=== PATIENT | male | born 1980 | race Two or more races ===

== ENCOUNTER 2019-02-23 14:18 | Inpatient (IN) | payer MEDICAID ==
[2019-02-22 18:40] VITALS: BP 145/90
[~2019-02-23] VITALS: Ht 172.7 cm; Wt 94.3 kg
[2019-02-23 14:21] VITALS: BP 141/93
[2019-02-23] MEDS ORDERED: HUMULIN R100 UNIT/1 SUBQ (14:25)
--- NOTE | 2019-02-23 14:30 | NUR ---
ED Nurse Note: patient walked into ED from home c/o left lower leg/foot swelling for 3 weeks. patient reports he has hx of DM1. patient is alert awake x4 ambulatory, breathing unlabored and even, speaking in full sentences.
--- NOTE | 2019-02-23 14:46 | Emergency Room Report ---
History of Present Illness General Chief Complaint: Edema Source: Patient Present Illness [facility] Disclaimer: Please note that this report is being documented using DRAGON technology. This can lead to erroneous entry secondary to incorrect interpretation by the dictating instrument. HPI: Is a 38-year-old male with a history of type 1 diabetes noncompliant with insulin presented for evaluation of left leg edema. Symptoms have been present for several weeks. He notes no obvious injury but is walking a lot. He states he has had one prior episode of lower extremity edema and was worked up and found no diagnosis. He notes pain in the foot, ankle and lower calf. Denies any fevers, chills, vomiting, diarrhea. He is noncompliant with his insulin and has not had any for several weeks. He otherwise denies any chest pain, shortness of breath, cough. He uses crystal meth, alcohol and tobacco. Does not inject any illicit drugs. No prior history of PE/DVT. No history of coagulopathy. PMH: Type 1 diabetes noncompliant PSH: Right ankle repair Allergies: Denies Social Hx: Crystal meth abuse, tobacco use, alcohol abuse Allergies: Coded Allergies: No Known Allergies (Unverified , 02/23/19) Nursing Documentation-[facility] Past Medical History: No History, Except For Hx Diabetes: Yes Review of Systems All Other Systems: negative except mentioned in HPI Physical Exam Vital Signs Date Time Temp Pulse Resp B/P (MAP) Pulse Ox O2 Delivery O2 Flow Rate FiO2 02/23/19 14:21 97.9 92 18 141/93 (109) 98 Room Air General: Awake and alert, no acute distress, unkempt HEENT: NC/AT. EOMI. poor dentition Cardiovascular: RRR. S1 and S2 normal. No murmur appreciated Resp: Normal work of breathing. No cough, wheezing or crackles appreciated Abdomen: Abdomen is soft, nondistended. Nontender Skin: 3+ pitting edema from the mid ferraro distally in the left lower extremity. Overlying erythema, no masses, no purulent drainage, no bleeding. There is a superficial ulcer over the left great toe at the distal phalanx without surrounding erythema or purulent drainage MSK: Normal tone and bulk. Moving all extremities. No obvious deformity. 3+ edema in the left lower extremity distally to the mid ferraro. No significant tenderness. Neuro: Awake and alert. Mentating appropriately. Sensation intact of the lower extremities bilaterally Procedures Critical Care Time Critical Care Time Total critical care time: Approximately 31 minutes Due to a high probability of clinically significant, life threatening deterioration, the patient required the highest level of preparedness to intervene emergently and I personally spent this critical care time directly and personally managing the patient. This critical care time included obtaining a history, examining the patient, pulse oximetry, ordering and reviewing studies , ordering treatments, evaluating response to treatment and updating management plan as needed, frequent reassessment and discussion with other providers as well as arranging for ultimate disposition. This critical to care time was performed to assess and manage the high probability of life-threatening deterioration that could result in multiorgan failure. This critical care time is separate from the separately billable procedures and treating other patients. Medical Decision Making Diagnostic Impression: Primary Impression: Cellulitis Additional Impressions: Hyperglycemia Toe ulcer due to DM Edema Hypokalemia Toe fracture ER Course Is a 38-year-old male presenting for several weeks of lower extremity edema. Laboratory Tests Test 02/23/19 14:44 02/23/19 15:40 White Blood Count 8.1 K/UL (4.8-10.8) Red Blood Count 4.65 M/UL (4.70-6.10) L Hemoglobin 11.7 G/DL (14.2-18.0) L Hematocrit 36.4 % (42.0-52.0) L Mean Corpuscular Volume 78 FL (80-99) L Mean Corpuscular Hemoglobin 25.1 PG (27.0-31.0) L Mean Corpuscular Hemoglobin Concent 32.0 G/DL (32.0-36.0) Red Cell Distribution Width 13.9 % (11.6-14.8) Platelet Count 261 K/UL (150-450) Mean Platelet Volume 6.1 FL (6.5-10.1) L Neutrophils (%) (Auto) 57.8 % (45.0-75.0) Lymphocytes (%) (Auto) 29.7 % (20.0-45.0) Monocytes (%) (Auto) 8.4 % (1.0-10.0) Eosinophils (%) (Auto) 3.0 % (0.0-3.0) Basophils (%) (Auto) 1.1 % (0.0-2.0) Erythrocyte Sedimentation Rate Pending Prothrombin Time 9.9 SEC (9.30-11.50) Prothrombin Time INR 0.9 (0.9-1.1) PTT 26 SEC (23-33) Sodium Level 132 MMOL/L (136-145) L Potassium Level 2.9 MMOL/L (3.5-5.1) L Chloride Level 96 MMOL/L (98-107) L Carbon Dioxide Level 26 MMOL/L (21-32) Anion Gap 10 mmol/L (5-15) Blood Urea Nitrogen 6 mg/dL (7-18) L Creatinine 0.9 MG/DL (0.55-1.30) Estimate Glomerular Filtration Rate > 60 mL/min (>60) Glucose Level 515 MG/DL (74-106) *H Calcium Level 8.2 MG/DL (8.5-10.1) L Total Bilirubin 0.6 MG/DL (0.2-1.0) Aspartate Amino Transferase (AST) 9 U/L (15-37) L Alanine Aminotransferase (ALT) 12 U/L (12-78) Alkaline Phosphatase 117 U/L (46-116) H Troponin I 0.000 ng/mL (0.000-0.056) C-Reactive Protein, Quantitative 6.8 mg/dL (0.00-0.90) H Pro-B-Type Natriuretic Peptide 69 pg/mL (0-125) Total Protein 7.5 G/DL (6.4-8.2) Albumin 2.7 G/DL (3.4-5.0) L Globulin 4.8 g/dL Albumin/Globulin Ratio 0.6 (1.0-2.7) L Acetone Level Pending Arterial Blood pH 7.409 (7.350-7.450) Arterial Blood Partial Pressure CO2 40.7 mmHg (35.0-45.0) Arterial Blood Partial Pressure O2 71.9 mmHg (75.0-100.0) L Arterial Blood HCO3 25.2 mmol/L (22.0-26.0) Arterial Blood Oxygen Saturation 93.8 % (95-100) L Arterial Blood Base Excess 0.5 (-2-2) Suraj Test Positive EKG Diagnostic Results EKG Time: 17:54 Rate: normal Rhythm: NSR ST Segments: no acute changes Other Impression Sinus rhythm, normal axis, prolonged QTC, flattened T waves Rhythm Strip Diag. Results Rhythm Strip Time: 17:54 EP Interpretation: yes Rate: 70s Rhythm: NSR, no PVC's, no ectopy Other X-Ray Diagnostic Results Other X-Ray Diagnostic Results : X-Ray ordered: Left foot # of Views/Limited Vs Complete: 3 View Indication: Swelling EP Interpretation: Yes Interpretation: other - Possible fracture of the distal phalanx of the left great toe Impression: Other - Possible fracture of the distal phalanx of left great toe Electronically Signed by: Electronically signed by Dr. See Corona Reevaluation Time: 15:58 Last Vital Signs Date Time Temp Pulse Resp B/P (MAP) Pulse Ox O2 Delivery O2 Flow Rate FiO2 02/23/19 14:21 97.9 92 18 141/93 (109) 98 Room Air Reevaluation Impression Labs show normal white count, anemia with a hemoglobin of 7811.7 that is slightly microcytic with an MCV of 78. Chemistry panel shows hyponatremia, hypokalemia, hypochloremia and a significantly elevated glucose at 515. CRP has returned elevated. Troponin is negative. VBG shows no significant acidosis. Ketone level is pending ESR is pending. Patient was started on IV fluids and given a dose of IV insulin. Potassium was low and repleted orally. He was started on clindamycin for cellulitis as there was no indication of lower extremity DVT on ultrasound but did find an enlarged lymph node and signs consistent with soft tissue swelling and cellulitis. Possible toe fracture on the distal tuft though this may be subacute. Official read is pending. Will be admitted for treatment of cellulitis, uncontrolled diabetes, lower extreme any edema Disposition: ADMITTED INPATIENT Condition: Serious See Corona MD Feb 23, 2019 14:46
[2019-02-23 15:07] LABS: BASOPHILS % (AUTO) 1.1 % (0.0-2.0); HEMATOCRIT 36.4 % (42.0-52.0); HEMOGLOBIN 11.7 G/DL (14.2-18.0); LYMPHOCYTES % (AUTO) 29.7 % (20.0-45.0); MEAN CORPUSCULAR VOLUME 78 FL (80-99); MONOCYTES % (AUTO) 8.4 % (1.0-10.0); NEUTROPHILS % (AUTO) 57.8 % (45.0-75.0); PLATELET COUNT 261 K/UL (150-450); RED BLOOD COUNT 4.65 M/UL (4.70-6.10); RED CELL DISTRIBUTION WIDTH 13.9 % (11.6-14.8); WHITE BLOOD COUNT 8.1 K/UL (4.8-10.8)
[2019-02-23 15:14] LABS: INR 0.9 (0.9-1.1)
[2019-02-23 15:30] LABS: ALANINE AMINOTRANSFERASE 12 U/L (12-78); ALBUMIN 2.7 G/DL (3.4-5.0); ALBUMIN/GLOBULIN RATIO 0.6 (1.0-2.7); ALKALINE PHOSPHATASE 117 U/L (46-116); ANION GAP 10 mmol/L (5-15); ASPARTATE AMINO TRANSFERASE 9 U/L (15-37); BILIRUBIN,TOTAL 0.6 MG/DL (0.2-1.0); BLOOD UREA NITROGEN 6 mg/dL (7-18); CALCIUM 8.2 MG/DL (8.5-10.1); CARBON DIOXIDE 26 MMOL/L (21-32); CHLORIDE 96 MMOL/L (98-107); CREATININE 0.9 MG/DL (0.55-1.30); POTASSIUM 2.9 MMOL/L (3.5-5.1); SODIUM 132 MMOL/L (136-145)
[2019-02-23] MEDS ORDERED: Clindamycin 600mg 50 ML IVPB ONE (15:45)
--- NOTE | 2019-02-23 15:57 | NUR ---
ED Nurse Note: patient resting comfortable in bed, denies any pain at this time.
[2019-02-23] MEDS ORDERED: Insulin Human Regular 100units/ml 3ml IV ONE (16:00)
--- NOTE | 2019-02-23 16:10 | Diagnostic Imaging Report ---
Indication: Left leg edema Technique: Grayscale and duplex images of the left lower extremity veins Comparison: none Findings: On the left, grayscale and duplex images demonstrate no evidence of intraluminal thrombus. Normal phasic Doppler waveforms, demonstrating normal augmentation response and no evidence of valvular insufficiency. There is edema of the subcutaneous fat of the left leg. Prominent lymph nodes with preserved normal architecture seen in left groin region. Impression: Negative for evidence of left lower extremity deep venous thrombosis
--- NOTE | 2019-02-23 17:34 | Diagnostic Imaging Report ---
Indication: Left foot pain and swelling Technique: 3 views left foot Comparison: None Findings: There is a transverse fracture of the terminal tuft of the first distal phalanx. This is slightly impacted and is comminuted. There is marked surrounding soft tissue swelling. There is evidence of soft tissue ulcer at the tip of the great toe No other acute fractures. No dislocations. The joint spaces are preserved. Impression: Positive for first distal phalanx terminal tuft fracture Extensive surrounding soft tissue swelling. Presence of a small ulcer suggests that this could be inflammatory rather than or in addition to related to trauma. Correlate with clinical findings This agrees with the preliminary interpretation reported by the emergency room physician in the electronic medical record
--- NOTE | 2019-02-23 17:50 | NUR ---
HAND-OFF: Report given to Dayron BOONE. endorsed all plan of care to him.
--- NOTE | 2019-02-23 18:10 | NUR ---
ED Nurse Note: EKG was done and given to Dr. Corona, Dr. Corona ok for the patient to go up to 4E. patient is transferred with all of his belongings to 4E in stable condition.
--- NOTE | 2019-02-23 18:20 | NUR ---
NURSE NOTES: Patient on floor. Patient requests to keep his money with him at bedside. paperwork signed and charge nurse notified. Vitals taken. patient reports no pain and patient
--- NOTE | 2019-02-23 19:40 | NUR ---
NURSE NOTES: Pt received in bed, asleep, no acute distress. Arrived from ER at 1820. Will monitor.
--- NOTE | 2019-02-23 19:41 | NUR ---
HAND-OFF: Report given to MELY Ingram.
[2019-02-23 20:00] VITALS: BP 148/91
[2019-02-23] MEDS ORDERED: HYDROcodone/Acetamin 5/325 tab ORAL PRN ×2 (20:30)
--- NOTE | 2019-02-23 20:30 | NUR ---
NURSE NOTES: Adm orders received from Dr. Vines
--- NOTE | 2019-02-23 21:30 | NUR ---
NURSE NOTES: Patient sleepy; answers questions with short answers only and goes back to sleep. Refuses remove t-shirt and boxers for full body assessment and requests to go back to sleep. Only noted ulcers on toes and small rash with pustules on left arm. No other complaints at this time.
[2019-02-23] MEDS: Piperacillin/Tazobactam 3.375 GM in NS 110 ML IVPB SCH (21:51)
[2019-02-23] MEDS: NovoLOG Insulin Flexpen SUBQ SCH (22:01)
[2019-02-23] MEDS: Heparin 5000 units/ml inj SUBQ SCH (22:09)
[2019-02-24] VITALS: BP 146/93
[2019-02-24 04:00] VITALS: BP 135/79
[2019-02-24] MEDS: Vancomycin 1.25gm/NS Premix q24h IVPB SCH ×2 (04:13→17:38)
[2019-02-24] MEDS: Piperacillin/Tazobactam 3.375 GM in NS 110 ML IVPB SCH ×3 (06:11→21:10)
[2019-02-24] MEDS: NovoLOG Insulin Flexpen SUBQ SCH ×4 (06:13→21:16)
--- NOTE | 2019-02-24 07:32 | NUR ---
HAND-OFF: Report given to Antonio Chambers RN.
[2019-02-24 08:00] VITALS: BP 124/92
[2019-02-24] MEDS: Heparin 5000 units/ml inj SUBQ SCH ×2 (08:14→21:17)
[2019-02-24 10:37] LABS: BASOPHILS % (AUTO) 0.9 % (0.0-2.0); EOSINOPHILS % (AUTO) 5.3 % (0.0-3.0); HEMATOCRIT 36.1 % (42.0-52.0); HEMOGLOBIN 11.6 G/DL (14.2-18.0); LYMPHOCYTES % (AUTO) 27.6 % (20.0-45.0); MEAN CORPUSCULAR VOLUME 78 FL (80-99); NEUTROPHILS % (AUTO) 59.1 % (45.0-75.0); PLATELET COUNT 258 K/UL (150-450); RED BLOOD COUNT 4.63 M/UL (4.70-6.10); RED CELL DISTRIBUTION WIDTH 14.1 % (11.6-14.8); WHITE BLOOD COUNT 7.4 K/UL (4.8-10.8)
[2019-02-24 10:52] LABS: ANION GAP 8 mmol/L (5-15); BLOOD UREA NITROGEN 5 mg/dL (7-18); CALCIUM 7.8 MG/DL (8.5-10.1); CARBON DIOXIDE 27 MMOL/L (21-32); CHLORIDE 103 MMOL/L (98-107); CREATININE 0.8 MG/DL (0.55-1.30); SODIUM 138 MMOL/L (136-145)
[2019-02-24 12:00] VITALS: BP 126/78
--- NOTE | 2019-02-24 13:14 | NUR ---
MRI Left foot completed.
--- NOTE | 2019-02-24 13:23 | NUR ---
NURSE NOTES: RN AND WOUND CARE NURSE CHANGED DRESSINGS OF LEFT FOOT. CLEANSE WITH NS, APPLY IODINE SWABS, GAUZE, AND WRAP WITH KERLIX. PT OFF UNIT FOR MRI LEFT FOOT.
--- NOTE | 2019-02-24 13:36 | Diagnostic Imaging Report ---
Indication: Ulceration plantar aspect great toe. Patient is diabetic. Technique: Left forefoot imaging utilizing multiplanar T1 fast spin-echo, proton and T2 fast spin-echo with fat saturation, and STIR. Comparison: Plain x-ray 02/23/2019 Findings: Plain x-ray clearly shows evidence of an acute comminuted fracture involving the distal phalangeal tuft of the first ray. Soft tissue swelling noted. The MRI examination demonstrates subcutaneous edema and skin thickening. There is ulceration clinically but that this is difficult to appreciate on the MRI examination. There may be a small plantar surface ulcer very distally. Please correlate clinically. There is also motion which limits evaluation. The MRI exam reflects the acute fracture involving the distal phalangeal tuft. There is associated bone marrow edema as expected with T2 hyperintense signal at the endosteal fractured ends of the bone. Superimposed osteomyelitis is not possible to exclude. IMPRESSION: Bone marrow edema in association with a comminuted fracture of the first distal phalangeal tuft. Associated soft tissue swelling. It is not possible to exclude superimposed osteomyelitis, if this is of concern clinically.
--- NOTE | 2019-02-24 15:45 | History and Physical Report ---
DATE OF ADMISSION: 02/23/2019 REASON FOR ADMISSION: Cellulitis. HISTORY OF PRESENT ILLNESS: This is a 38-year-old male, history of diabetes now with noncompliance use. The patient has had worsening left leg edema for the past several weeks. The patient is seen, evaluated in the emergency room. Denies any IV drug abuse. No history of DVT. The patient seen, evaluated, and now admitted for IV antibiotics. PAST MEDICAL HISTORY: Diabetes, prior history of right ankle repair. MEDICATIONS: Reviewed. ALLERGIES: Reviewed. None known. SOCIAL HISTORY: Prior history of crystal meth use, tobacco use, alcohol abuse. REVIEW OF SYSTEMS: Otherwise negative. PHYSICAL EXAMINATION: GENERAL: A well-developed male, comfortable. VITAL SIGNS: Reviewed. Blood pressure is slightly elevated. HEENT: Negative. NECK: Supple. LUNGS: Clear. CARDIAC: S1, S2. Regular rate and rhythm. ABDOMEN: Soft, nontender. EXTREMITIES: 3+ edema of the left lower extremity noted. Erythema and a superficial ulcer of the left great toe without any drainage. IMPRESSION: Cellulitis, hyperglycemia, noncompliance, toe ulcer, toe fracture. RECOMMENDATIONS: Supportive care, IV antibiotics, wound care, and follow clinically. Once improved, we will transition to p.o. antibiotics with close outpatient followup. Resume insulin management and sliding scale insulin and we will monitor clinically. Darryl Vines M.D. DR: ASHLYN JOB#: [id number] CC:
[2019-02-24 16:00] VITALS: BP 130/80
--- NOTE | 2019-02-24 16:02 | NUR ---
NURSE NOTES:WOUND CARE NOTES: Pt presented on admission with ulcers Plantar L 1st metatarsal and lateral L 5th metatarsal. Base of wound L st metatarsal noted to have soft necrosis with surrounding erythema. (L)1cm x (W)2.2cm . No odor or exudate noted. Ulcer lateral L 5th metatarsal has 100% fibrinous slough with macerated borders .Wound is malodorous.Small amt purulent exudate noted (L)1.3cm x (W)1cm x (D)0.5cm . Pt verbalized he has had wounds on feet for 6 weeks and denied seeking medical attention for wounds.
--- NOTE | 2019-02-24 17:15 | Consultation ---
DATE OF CONSULTATION: 02/24/2019 INFECTIOUS DISEASE CONSULTATION This consult is for coverage of Dr. Pisano. CONSULTING PHYSICIAN: Jhonathan Gray M.D. PRIMARY ATTENDING: Darryl Vines M.D. REASON FOR CONSULT: Diabetic foot. HISTORY OF PRESENT ILLNESS: This is a 38-year-old male admitted yesterday complaining of swelling in the left foot area. The patient did not have pain. He has ulceration in the fifth toe that is present for a couple of weeks. He is a diabetic and noncompliant with medication. PAST MEDICAL HISTORY: Significant for diabetes mellitus for many years. ALLERGIES: No known drug allergy. MEDICATIONS: Potassium chloride, Protonix, vancomycin, Zosyn, insulin, heparin, Tylenol, [place], Mylanta. SOCIAL HISTORY: Single. Smokes 2 to 4 cigarettes a day. HABITS: Uses methamphetamine. REVIEW OF SYSTEMS: No fever. No chills. No coughing. No problem passing urine. No nausea. No vomiting. No significant pain. PHYSICAL EXAMINATION: VITAL SIGNS: Temperature 98.4, pulse 81, blood pressure is 124/92. GENERAL APPEARANCE: No acute distress. Well developed. HEAD AND NECK: [place] conjunctiva. HEART: Normal rate. LUNGS: Clear. ABDOMEN: Soft, nontender. EXTREMITIES: Has left foot soft tissue edema. Ulceration of the fifth toe and deformity of left big toe and callous on plantar surface of the big toe. LABORATORY DATA: WBC 8.1, hemoglobin 11.7, hematocrit 36.4, platelets 261. Sodium 132, potassium 2.9, chloride 96, bicarbonate 26, BUN 6, creatinine 0.9, glucose 550. Albumin is 2.7. Left foot x-ray showed first distal phalanx terminal fracture. Extensive soft tissue swelling. IMPRESSION: Diabetic foot with foot ulceration and cellulitis. We will try to rule out osteomyelitis. Has left big toe fracture. Has uncontrolled diabetes mellitus. Has polysubstance abuse, nicotine dependence, and methamphetamine abuse. RECOMMENDATION: Continue with vancomycin and Zosyn. We will order MRI of the left foot to. rule osteomyelitis At the end of my exam, I thank Dr. Vines for involving me in the care of this patient. Jhonathan Gray M.D. DR: SEVERINO JOB#: [id number] CC: CM
--- NOTE | 2019-02-24 19:31 | NUR ---
HAND-OFF: Report given to Winston THOMPSON RN.
--- NOTE | 2019-02-24 19:40 | NUR ---
NURSE NOTES: Patient received in bed, asleep, no acute distress, breathing even and unlabored. IV infusing on LAC. Call light and urinal within reach. Will monitor.
[2019-02-24 20:09] VITALS: BP 113/75
--- NOTE | 2019-02-24 22:49 | Consultation ---
History of Present Illness General Date patient seen: Feb 24, 2019 Reason for Hospitalization: Edema Present Illness HPI 38 year old male with DM who presented to ED with worsening left foot pain. Has been ongoing for some time now and has not had medical attention. came in for evaluation. noted to have left foot cellulitis. admitted for care and management. surgery called to evaluate and assist with care. patient seen, chart reviewed, patient examined. pain but improving. no n/v/f/c. lab snoted Allergies: Coded Allergies: No Known Allergies (Unverified , 02/23/19) Medication History Miscellaneous Medications Insulin Regular, Human (Humulin R), 0 SUBQ, (Reported) Patient History History Provided By: Patient, Medical Record, PMD Healthcare decision maker Resuscitation status Full Code Advanced Directive on File Past Medical/Surgical History Past Medical/Surgical History: (1) Toe fracture (2) Hypokalemia (3) Edema (4) Toe ulcer due to DM (5) Cellulitis (6) Hyperglycemia Review of Systems Review of Symptoms General ROS: no weight loss or fever Psychological ROS: no depression or mood changes, no memory loss Ophthalmic ROS: no visual changes or eye irritation ENT ROS: no nasal congestion, hearing loss, dizziness Allergy and Immunology ROS: no allergic symptoms or urticaria Hematological and Lymphatic ROS: no swollen glands, unusual bleeding or bruising Endocrine ROS: no polyuria, polydipsia, weight changes, temperature intolerance Respiratory ROS: no cough, shortness of breath, or wheezing Cardiovascular ROS: no chest pain or dyspnea on exertion Gastrointestinal ROS: denies abdominal pain, no bright red blood in stool. Musculoskeletal ROS: no myalgias or arthralgias Neurological ROS: no TIA or stroke symptoms Dermatological ROS: no new or changing skin lesions, rashes or pruritis Physical Exam Physical Exam General appearance: alert, cooperative, no distress, appears stated age Head: Normocephalic, without obvious abnormality, atraumatic Eyes: conjunctivae/corneas clear. PERRL, EOM's intact. Fundi benign Throat: Lips, mucosa, and tongue normal. Teeth and gums normal Neck: supple, symmetrical, trachea midline, no adenopathy, thyroid: not enlarged, symmetric, no tenderness/mass/nodules, no carotid bruit and no JVD Lungs: clear to auscultation bilaterally Heart: regular rate and rhythm, S1, S2 normal, no murmur, click, rub or gallop Abdomen: soft, non-tender. Bowel sounds normal. No masses, no organomegaly Extremities: extremities edema Pulses: 2+ and symmetric Skin: Skin color, texture, turgor normal. No rashes or lesions Neurologic: Grossly normal Last 24 Hour Vital Signs Date Time Temp Pulse Resp B/P (MAP) Pulse Ox O2 Delivery O2 Flow Rate FiO2 02/24/19 20:09 97.6 79 18 113/75 (88) 99 02/24/19 19:58 Room Air 02/24/19 16:00 98.3 86 18 130/80 (97) 97 02/24/19 12:00 98.1 88 16 126/78 (94) 100 02/24/19 09:00 Room Air 02/24/19 08:00 98.4 81 16 124/92 (103) 97 02/24/19 04:00 98.9 89 20 135/79 (97) 99 02/24/19 00:00 98.6 82 18 146/93 (110) 99 Intake and Output 02/23/19 02/24/19 19:00 07:00 Intake Total 1015.000 ml Output Total 650 ml Balance 365.000 ml IV Total 1015.000 ml Output Urine Total 650 ml # Voids 1 Laboratory Tests Test 02/24/19 10:20 White Blood Count 7.4 K/UL (4.8-10.8) Red Blood Count 4.63 M/UL (4.70-6.10) L Hemoglobin 11.6 G/DL (14.2-18.0) L Hematocrit 36.1 % (42.0-52.0) L Mean Corpuscular Volume 78 FL (80-99) L Mean Corpuscular Hemoglobin 25.1 PG (27.0-31.0) L Mean Corpuscular Hemoglobin Concent 32.2 G/DL (32.0-36.0) Red Cell Distribution Width 14.1 % (11.6-14.8) Platelet Count 258 K/UL (150-450) Mean Platelet Volume 5.7 FL (6.5-10.1) L Neutrophils (%) (Auto) 59.1 % (45.0-75.0) Lymphocytes (%) (Auto) 27.6 % (20.0-45.0) Monocytes (%) (Auto) 7.0 % (1.0-10.0) Eosinophils (%) (Auto) 5.3 % (0.0-3.0) H Basophils (%) (Auto) 0.9 % (0.0-2.0) Sodium Level 138 MMOL/L (136-145) Potassium Level 3.0 MMOL/L (3.5-5.1) L Chloride Level 103 MMOL/L (98-107) Carbon Dioxide Level 27 MMOL/L (21-32) Anion Gap 8 mmol/L (5-15) Blood Urea Nitrogen 5 mg/dL (7-18) L Creatinine 0.8 MG/DL (0.55-1.30) Estimat Glomerular Filtration Rate > 60 mL/min (>60) Glucose Level 263 MG/DL (74-106) #H Calcium Level 7.8 MG/DL (8.5-10.1) L Height (Feet): 5 Height (Inches): 8.00 Weight (Pounds): 208 Medications Current Medications Medications (Trade) Dose Ordered Sig/Bashir Route PRN Reason Start Time Stop Time Status Last Admin Dose Admin Acetaminophen (Tylenol) 650 mg Q4H PRN ORAL Mild Pain/Temp > 100.5 02/23/19 20:30 03/25/19 20:29 Acetaminophen/ Hydrocodone Bitart ([place] 5/325) 1 tab Q4H PRN ORAL Moderate Pain (Pain Scale 4-6) 02/23/19 20:30 03/02/19 20:29 Acetaminophen/ Hydrocodone Bitart ([place] 5/325) 2 tab Q4H PRN ORAL severe pain 7-10 02/23/19 20:30 03/02/19 20:29 Al Hydroxide/Mg Hydroxide (Mylanta) 30 ml Q4H PRN ORAL upset stomach 02/23/19 20:30 03/25/19 20:29 Dextrose (Dextrose 50%) 25 ml Q30M PRN IV Hypoglycemia 02/23/19 20:30 03/25/19 20:29 Dextrose (Dextrose 50%) 50 ml Q30M PRN IV Hypoglycemia 02/23/19 20:30 03/25/19 20:29 Heparin Sodium (Porcine) (Heparin 5000 units/ml) 5,000 units EVERY 12 HOURS SUBQ 02/23/19 21:00 03/25/19 20:59 02/24/19 21:17 Insulin Aspart (NovoLOG) BEFORE MEALS AND HS SUBQ 02/23/19 21:00 03/25/19 20:59 02/24/19 21:16 Pantoprazole (Protonix) 40 mg DAILY ORAL 02/24/19 09:00 03/26/19 08:59 02/24/19 08:08 Piperacillin Sod/ Tazobactam Sod 3.375 gm/Sodium Chloride 110 ml @ 27.5 mls/hr Q8HR IVPB 02/23/19 22:00 03/02/19 21:59 02/24/19 21:10 Sodium Chloride 1,000 ml @ 100 mls/hr Q10H IV 02/23/19 20:30 03/25/19 20:29 02/24/19 17:44 Vancomycin HCl (Vanco rx to dose) 1 ea DAILY PRN MISC Per rx protocol 02/23/19 20:30 03/25/19 20:29 Vancomycin/Sodium Chloride 275 ml @ 183.333 mls/hr Q12HR@0500,1700 IVPB 02/24/19 05:00 03/01/19 04:59 02/24/19 17:38 Assessment/Plan Problem List: (1) Toe fracture Assessment & Plan: Findings: Plain x-ray clearly shows evidence of an acute comminuted fracture involving the distal phalangeal tuft of the first ray. Soft tissue swelling noted. The MRI examination demonstrates subcutaneous edema and skin thickening. There is ulceration clinically but that this is difficult to appreciate on the MRI examination. There may be a small plantar surface ulcer very distally. Please correlate clinically. There is also motion which limits evaluation. The MRI exam reflects the acute fracture involving the distal phalangeal tuft. There is associated bone marrow edema as expected with T2 hyperintense signal at the endosteal fractured ends of the bone. Superimposed osteomyelitis is not possible to exclude. IMPRESSION: Bone marrow edema in association with a comminuted fracture of the first distal phalangeal tuft. Associated soft tissue swelling. It is not possible to exclude superimposed osteomyelitis, if this is of concern clinically. ICD Codes: S92.919A - Unspecified fracture of unspecified toe(s), initial encounter for closed fracture SNOMED: 89434057 (2) Edema ICD Codes: R60.9 - Edema, unspecified SNOMED: 751822234, [id number] (3) Cellulitis Assessment & Plan: Pt presented on admission with ulcers Plantar L 1st metatarsal and lateral L 5th metatarsal. Base of wound L st metatarsal noted to have soft necrosis with surrounding erythema. (L)1cm x (W)2.2cm . No odor or exudate noted. Ulcer lateral L 5th metatarsal has 100% fibrinous slough with macerated borders .Wound is malodorous.Small amt purulent exudate noted (L)1.3cm x (W)1cm x (D) 0.5cm . Pt verbalized he has had wounds on feet for 6 weeks and denied seeking medical attention for wounds. will plan for local wound care and abx Abx as per ID Podiatry consult given fx will follow with recs thank you ICD Codes: L03.90 - Cellulitis, unspecified SNOMED: [id number] Ever Sánchez Feb 24, 2019 22:49
--- NOTE | 2019-02-24 23:50 | NUR ---
NURSE NOTES: Received pt from MELY Maguire to continue care. Pt sleeping in bed. IV L AC intact and running fluid. No c/o pain, no acute distress noted at this time. Bed locked, lowest position, alarm on, side rails up x 2, call light within reach. Will continue to monitor.
--- NOTE | 2019-02-24 23:52 | NUR ---
HAND-OFF: Report given to Katherin BOONE.
[2019-02-25] VITALS: BP 121/76
[2019-02-25 04:00] VITALS: BP 130/82
[2019-02-25] MEDS: Vancomycin 1.25gm/NS Premix q24h IVPB SCH ×2 (04:04→17:00)
[2019-02-25] MEDS: Piperacillin/Tazobactam 3.375 GM in NS 110 ML IVPB SCH ×3 (06:30→21:25)
[2019-02-25] MEDS: NovoLOG Insulin Flexpen SUBQ SCH ×4 (06:32→20:36)
--- NOTE | 2019-02-25 06:58 | NUR ---
HAND-OFF: Report given to MELY Alvarez.
--- NOTE | 2019-02-25 07:00 | NUR ---
NURSE NOTES: Received patient on bed asleep. No SOB or cardiac distress. IV access intact and patent, no s/s of infiltration. Wound dressing dislodged. Head of bed elevated. Bed kept on lowest position and locked. Call light within reach. Will continue plan of care.
[2019-02-25 07:11] LABS: BASOPHILS % (AUTO) 1.1 % (0.0-2.0); EOSINOPHILS % (AUTO) 5.4 % (0.0-3.0); HEMATOCRIT 37.8 % (42.0-52.0); HEMOGLOBIN 12.1 G/DL (14.2-18.0); LYMPHOCYTES % (AUTO) 35.2 % (20.0-45.0); MEAN CORPUSCULAR VOLUME 80 FL (80-99); MONOCYTES % (AUTO) 5.8 % (1.0-10.0); NEUTROPHILS % (AUTO) 52.5 % (45.0-75.0); PLATELET COUNT 260 K/UL (150-450); RED BLOOD COUNT 4.74 M/UL (4.70-6.10); WHITE BLOOD COUNT 6.9 K/UL (4.8-10.8)
[2019-02-25 07:22] LABS: ALANINE AMINOTRANSFERASE 11 U/L (12-78); ALBUMIN 2.1 G/DL (3.4-5.0); ALBUMIN/GLOBULIN RATIO 0.5 (1.0-2.7); ALKALINE PHOSPHATASE 64 U/L (46-116); ANION GAP 10 mmol/L (5-15); ASPARTATE AMINO TRANSFERASE 12 U/L (15-37); BILIRUBIN,TOTAL 0.4 MG/DL (0.2-1.0); BLOOD UREA NITROGEN 7 mg/dL (7-18); CARBON DIOXIDE 26 MMOL/L (21-32); CHLORIDE 105 MMOL/L (98-107); CREATININE 0.8 MG/DL (0.55-1.30); POTASSIUM 3.7 MMOL/L (3.5-5.1); SODIUM 141 MMOL/L (136-145)
[2019-02-25 08:00] VITALS: BP 147/90
[2019-02-25] MEDS: Heparin 5000 units/ml inj SUBQ SCH ×2 (09:39→20:35)
--- NOTE | 2019-02-25 10:50 | Infectious Diseases Prog Note ---
Assessment/Plan Assessment/Plan antibiotics : vancomycin iv, zosyn A 1. left big toe ulcer infection 2. diabetes mellitus 3. left big toe fracture P 1. continue iv vancomycin, zosyn 2. will follow up cultures 3. left big toe culture Subjective ROS Limited/Unobtainable: Yes Allergies: Coded Allergies: No Known Allergies (Unverified , 02/23/19) Objective Vital Signs Last 24 Hour Vital Signs Date Time Temp Pulse Resp B/P (MAP) Pulse Ox O2 Delivery O2 Flow Rate FiO2 02/25/19 08:00 98.9 86 17 147/90 (109) 100 02/25/19 04:00 98.4 85 20 130/82 (98) 97 02/25/19 00:00 99.2 87 18 121/76 (91) 99 02/24/19 20:09 97.6 79 18 113/75 (88) 99 02/24/19 19:58 Room Air 02/24/19 16:00 98.3 86 18 130/80 (97) 97 02/24/19 12:00 98.1 88 16 126/78 (94) 100 Height (Feet): 5 Height (Inches): 8.00 Weight (Pounds): 208 Respiratory/Chest: lungs clear Cardiovascular: normal rate, regular rhythm, no gallop/murmur Abdomen: soft, non tender Extremities: no edema, other - left big toe ulcer on plantar aspect Laboratory Tests Test 02/25/19 05:10 White Blood Count 6.9 K/UL (4.8-10.8) Red Blood Count 4.74 M/UL (4.70-6.10) Hemoglobin 12.1 G/DL (14.2-18.0) L Hematocrit 37.8 % (42.0-52.0) L Mean Corpuscular Volume 80 FL (80-99) Mean Corpuscular Hemoglobin 25.5 PG (27.0-31.0) L Mean Corpuscular Hemoglobin Concent 32.0 G/DL (32.0-36.0) Red Cell Distribution Width 13.0 % (11.6-14.8) Platelet Count 260 K/UL (150-450) Mean Platelet Volume 5.9 FL (6.5-10.1) L Neutrophils (%) (Auto) 52.5 % (45.0-75.0) Lymphocytes (%) (Auto) 35.2 % (20.0-45.0) Monocytes (%) (Auto) 5.8 % (1.0-10.0) Eosinophils (%) (Auto) 5.4 % (0.0-3.0) H Basophils (%) (Auto) 1.1 % (0.0-2.0) Erythrocyte Sedimentation Rate 43 MM/HR (0-15) H Prothrombin Time 10.2 SEC (9.30-11.50) Prothromb Time International Ratio 1.0 (0.9-1.1) Activated Partial Thromboplast Time 27 SEC (23-33) Sodium Level 141 MMOL/L (136-145) Potassium Level 3.7 MMOL/L (3.5-5.1) Chloride Level 105 MMOL/L (98-107) Carbon Dioxide Level 26 MMOL/L (21-32) Anion Gap 10 mmol/L (5-15) Blood Urea Nitrogen 7 mg/dL (7-18) Creatinine 0.8 MG/DL (0.55-1.30) Estimat Glomerular Filtration Rate > 60 mL/min (>60) Glucose Level 243 MG/DL (74-106) H Calcium Level 8.0 MG/DL (8.5-10.1) L Total Bilirubin 0.4 MG/DL (0.2-1.0) Aspartate Amino Transf (AST/SGOT) 12 U/L (15-37) L Alanine Aminotransferase (ALT/SGPT) 11 U/L (12-78) L Alkaline Phosphatase 64 U/L (46-116) C-Reactive Protein, Quantitative 5.0 mg/dL (0.00-0.90) H Total Protein 6.6 G/DL (6.4-8.2) Albumin 2.1 G/DL (3.4-5.0) L Globulin 4.5 g/dL Albumin/Globulin Ratio 0.5 (1.0-2.7) L Current Medications Medications (Trade) Dose Ordered Sig/Bashir Route PRN Reason Start Time Stop Time Status Last Admin Dose Admin Acetaminophen (Tylenol) 650 mg Q4H PRN ORAL Mild Pain/Temp > 100.5 02/23/19 20:30 03/25/19 20:29 Acetaminophen/ Hydrocodone Bitart ([place] 5/325) 1 tab Q4H PRN ORAL Moderate Pain (Pain Scale 4-6) 02/23/19 20:30 03/02/19 20:29 Acetaminophen/ Hydrocodone Bitart ([place] 5/325) 2 tab Q4H PRN ORAL severe pain 7-10 02/23/19 20:30 03/02/19 20:29 Al Hydroxide/Mg Hydroxide (Mylanta) 30 ml Q4H PRN ORAL upset stomach 02/23/19 20:30 03/25/19 20:29 Dextrose (Dextrose 50%) 25 ml Q30M PRN IV Hypoglycemia 02/23/19 20:30 03/25/19 20:29 Dextrose (Dextrose 50%) 50 ml Q30M PRN IV Hypoglycemia 02/23/19 20:30 03/25/19 20:29 Heparin Sodium (Porcine) (Heparin 5000 units/ml) 5,000 units EVERY 12 HOURS SUBQ 02/23/19 21:00 03/25/19 20:59 02/25/19 09:39 Insulin Aspart (NovoLOG) BEFORE MEALS AND HS SUBQ 02/23/19 21:00 03/25/19 20:59 02/25/19 06:32 Pantoprazole (Protonix) 40 mg DAILY ORAL 02/24/19 09:00 03/26/19 08:59 02/25/19 09:34 Piperacillin Sod/ Tazobactam Sod 3.375 gm/Sodium Chloride 110 ml @ 27.5 mls/hr Q8HR IVPB 02/23/19 22:00 03/02/19 21:59 02/25/19 06:30 Sodium Chloride 1,000 ml @ 100 mls/hr Q10H IV 02/23/19 20:30 03/25/19 20:29 02/24/19 17:44 Vancomycin HCl (Vanco rx to dose) 1 ea DAILY PRN MISC Per rx protocol 02/23/19 20:30 03/25/19 20:29 Vancomycin/Sodium Chloride 275 ml @ 183.333 mls/hr Q12HR@0500,1700 IVPB 02/24/19 05:00 03/01/19 04:59 02/25/19 04:04 Leigh Ann Pisano MD Feb 25, 2019 10:50
[2019-02-25 12:00] VITALS: BP 134/88
--- NOTE | 2019-02-25 13:37 | NUR ---
NURSE NOTES: PT'S LEFT FOOT DRESSING HAS COME UNDONE. RN CHANGED DRESSING ORDERED.
--- NOTE | 2019-02-25 13:59 | General Progress Note ---
Assessment/Plan Assessment/Plan: IMPRESSION: Cellulitis, hyperglycemia, noncompliance, toe ulcer, toe fracture. PLAN antibiotics MRI noted ESR better await ID clearance Subjective Allergies: Coded Allergies: No Known Allergies (Unverified , 02/23/19) Subjective care noted all MD care appreciated Objective Last 24 Hour Vital Signs Date Time Temp Pulse Resp B/P (MAP) Pulse Ox O2 Delivery O2 Flow Rate FiO2 02/25/19 12:00 98.7 80 19 134/88 (103) 96 02/25/19 09:00 Room Air 02/25/19 08:00 98.9 86 17 147/90 (109) 100 02/25/19 04:00 98.4 85 20 130/82 (98) 97 02/25/19 00:00 99.2 87 18 121/76 (91) 99 02/24/19 20:09 97.6 79 18 113/75 (88) 99 02/24/19 19:58 Room Air 02/24/19 16:00 98.3 86 18 130/80 (97) 97 Intake and Output 02/24/19 02/25/19 19:00 07:00 Intake Total 1903.333 ml 1381.667 ml Output Total 1500 ml Balance 1903.333 ml -118.333 ml Intake Oral 600 ml IV Total 1303.333 ml 1381.667 ml Output Urine Total 1500 ml # Voids 3 2 # Bowel Movements 1 Laboratory Tests 02/25/19 05:10: White Blood Count 6.9, Red Blood Count 4.74, Hemoglobin 12.1L, Hematocrit 37.8L , Mean Corpuscular Volume 80, Mean Corpuscular Hemoglobin 25.5L, Mean Corpuscular Hemoglobin Concent 32.0, Red Cell Distribution Width 13.0, Platelet Count 260, Mean Platelet Volume 5.9L, Neutrophils (%) (Auto) 52.5, Lymphocytes ( %) (Auto) 35.2, Monocytes (%) (Auto) 5.8, Eosinophils (%) (Auto) 5.4H, Basophils (%) (Auto) 1.1, Erythrocyte Sedimentation Rate 43H, Prothrombin Time 10.2, Prothromb Time International Ratio 1.0, Activated Partial Thromboplast Time 27, Sodium Level 141, Potassium Level 3.7, Chloride Level 105, Carbon Dioxide Level 26, Anion Gap 10, Blood Urea Nitrogen 7, Creatinine 0.8, Estimat Glomerular Filtration Rate > 60, Glucose Level 243H, Calcium Level 8.0L, Total Bilirubin 0.4, Aspartate Amino Transf (AST/SGOT) 12L, Alanine Aminotransferase ( ALT/SGPT) 11L, Alkaline Phosphatase 64, C-Reactive Protein, Quantitative 5.0H, Total Protein 6.6, Albumin 2.1L, Globulin 4.5, Albumin/Globulin Ratio 0.5L Height (Feet): 5 Height (Inches): 8.00 Weight (Pounds): 208 Objective GENERAL: A well-developed male, comfortable. NECK: Supple. LUNGS: Clear. CARDIAC: S1, S2. Regular rate and rhythm. ABDOMEN: Soft, nontender. EXTREMITIES: 3+ edema of the left lower extremity noted. Erythema and a superficial ulcer of the left great toe without any drainage. Darryl Vines MD Feb 25, 2019 13:59
[2019-02-25 16:00] VITALS: BP 130/80
--- NOTE | 2019-02-25 17:24 | Surgery Progress Note ---
Surgery Progress Note Subjective Symptoms: improved, tolerating diet, voiding well, pain decreased Additional Comments states feels much better Objective Last 24 Hour Vital Signs Date Time Temp Pulse Resp B/P (MAP) Pulse Ox O2 Delivery O2 Flow Rate FiO2 02/25/19 16:00 98.6 90 17 130/80 (97) 98 02/25/19 12:00 98.7 80 19 134/88 (103) 96 02/25/19 09:00 Room Air 02/25/19 08:00 98.9 86 17 147/90 (109) 100 02/25/19 04:00 98.4 85 20 130/82 (98) 97 02/25/19 00:00 99.2 87 18 121/76 (91) 99 02/24/19 20:09 97.6 79 18 113/75 (88) 99 02/24/19 19:58 Room Air I&O Intake and Output 02/24/19 02/25/19 19:00 07:00 Intake Total 1903.333 ml 1381.667 ml Output Total 1500 ml Balance 1903.333 ml -118.333 ml Intake Oral 600 ml IV Total 1303.333 ml 1381.667 ml Output Urine Total 1500 ml # Voids 3 2 # Bowel Movements 1 Dressing: dry Wound: clean Cardiovascular: RSR Respiratory: clear Abdomen: soft, flat, non-tender, present bowel sounds Extremities: edema, no tenderness, no cyanosis Laboratory Tests Test 02/25/19 05:10 02/25/19 16:10 White Blood Count 6.9 K/UL (4.8-10.8) Red Blood Count 4.74 M/UL (4.70-6.10) Hemoglobin 12.1 G/DL (14.2-18.0) L Hematocrit 37.8 % (42.0-52.0) L Mean Corpuscular Volume 80 FL (80-99) Mean Corpuscular Hemoglobin 25.5 PG (27.0-31.0) L Mean Corpuscular Hemoglobin Concent 32.0 G/DL (32.0-36.0) Red Cell Distribution Width 13.0 % (11.6-14.8) Platelet Count 260 K/UL (150-450) Mean Platelet Volume 5.9 FL (6.5-10.1) L Neutrophils (%) (Auto) 52.5 % (45.0-75.0) Lymphocytes (%) (Auto) 35.2 % (20.0-45.0) Monocytes (%) (Auto) 5.8 % (1.0-10.0) Eosinophils (%) (Auto) 5.4 % (0.0-3.0) H Basophils (%) (Auto) 1.1 % (0.0-2.0) Erythrocyte Sedimentation Rate 43 MM/HR (0-15) H Prothrombin Time 10.2 SEC (9.30-11.50) Prothromb Time International Ratio 1.0 (0.9-1.1) Activated Partial Thromboplast Time 27 SEC (23-33) Sodium Level 141 MMOL/L (136-145) Potassium Level 3.7 MMOL/L (3.5-5.1) Chloride Level 105 MMOL/L (98-107) Carbon Dioxide Level 26 MMOL/L (21-32) Anion Gap 10 mmol/L (5-15) Blood Urea Nitrogen 7 mg/dL (7-18) Creatinine 0.8 MG/DL (0.55-1.30) Estimat Glomerular Filtration Rate > 60 mL/min (>60) Glucose Level 243 MG/DL (74-106) H Calcium Level 8.0 MG/DL (8.5-10.1) L Total Bilirubin 0.4 MG/DL (0.2-1.0) Aspartate Amino Transf (AST/SGOT) 12 U/L (15-37) L Alanine Aminotransferase (ALT/SGPT) 11 U/L (12-78) L Alkaline Phosphatase 64 U/L (46-116) C-Reactive Protein, Quantitative 5.0 mg/dL (0.00-0.90) H Total Protein 6.6 G/DL (6.4-8.2) Albumin 2.1 G/DL (3.4-5.0) L Globulin 4.5 g/dL Albumin/Globulin Ratio 0.5 (1.0-2.7) L Vancomycin Level Trough 9.5 ug/mL (5.0-12.0) Plan Problems: (1) Toe fracture Assessment & Plan: Findings: Plain x-ray clearly shows evidence of an acute comminuted fracture involving the distal phalangeal tuft of the first ray. Soft tissue swelling noted. The MRI examination demonstrates subcutaneous edema and skin thickening. There is ulceration clinically but that this is difficult to appreciate on the MRI examination. There may be a small plantar surface ulcer very distally. Please correlate clinically. There is also motion which limits evaluation. The MRI exam reflects the acute fracture involving the distal phalangeal tuft. There is associated bone marrow edema as expected with T2 hyperintense signal at the endosteal fractured ends of the bone. Superimposed osteomyelitis is not possible to exclude. IMPRESSION: Bone marrow edema in association with a comminuted fracture of the first distal phalangeal tuft. Associated soft tissue swelling. It is not possible to exclude superimposed osteomyelitis, if this is of concern clinically. (2) Edema (3) Cellulitis Assessment & Plan: Pt presented on admission with ulcers Plantar L 1st metatarsal and lateral L 5th metatarsal. Base of wound L st metatarsal noted to have soft necrosis with surrounding erythema. (L)1cm x (W)2.2cm . No odor or exudate noted. Ulcer lateral L 5th metatarsal has 100% fibrinous slough with macerated borders .Wound is malodorous.Small amt purulent exudate noted (L)1.3cm x (W)1cm x (D) 0.5cm . Pt verbalized he has had wounds on feet for 6 weeks and denied seeking medical attention for wounds. cont current care plan Abx as per ID Podiatry consult given fx will follow with recs thank you Ever Sánchez Feb 25, 2019 17:24
[2019-02-25] MEDS: Vancomycin 1.25 GM in NS 275 ML IVPB SCH (17:52)
--- NOTE | 2019-02-25 18:16 | NUR ---
NURSE NOTES: PT AMBULATED AROUND UNIT WITH STEADY GAIT. IN NO APPARENT DISTRESS. DENIES PAIN OF LEFT FOOT. PT EDUCATED ON FALL PRECAUTIONS. PT VERBALIZED UNDERSTANDING. WILL CONTINUE TO MONITOR.
--- NOTE | 2019-02-25 18:39 | NUR ---
CASE MANAGEMENT: REVIEW 38Y/MALE PRESENTED TO ED FROM HOME CC: LEFT FOOT SWELLING X3 WEEKS Hx: DM SI: HYPERGLYCEMIA . CELLULITIS T 97.9 HR 86 RR 17 BP 145/90 SAT 96% ROOM AIR H/H 11.7/36.4 GLUCOSE 515 IS: CLINDAMYCIN IV X1 NS IVF BOLUS X1 NOVOLIN R 10UNITS IV X1 K-DUR 40 MEQ PO X1 K-DUR 40 MEQ PO X1 K-DUR 40 MEQ PO X1 WOUND CARE PATIENT ADMITTED TO MED/SURG UNIT 02/23/2019 DCP: PATIENT IS FROM HOME
--- NOTE | 2019-02-25 19:24 | NUR ---
NURSE NOTES: Patient ambulated along the corridor, gait steady, no complaints of pain, discomfort or dizziness noted.
--- NOTE | 2019-02-25 19:30 | NUR ---
NURSE NOTES: Received report erick Chambers RN and rounds made with outgoing nurse. Received pt laying in bed, AOx4, denies pain, no distress noted. IV R FA patent and intact. L toe dressing C/D/I. Bed in lowest position and locked, side rails up x 2, call light within reach. Will continue to monitor.
--- NOTE | 2019-02-25 19:44 | NUR ---
HAND-OFF: Report given to Adolfo HOLLINS RN.
[2019-02-25 20:00] VITALS: BP 147/93
[2019-02-26] VITALS: BP 151/87
--- NOTE | 2019-02-26 00:11 | NUR ---
NURSE NOTES: Pt received from Paul Fraire RN in stable condition. Pt is in bed, awake,and alert. No acute distress noted. Vitals stable. NS running at 100 ml/hr. Wound dressing dry and intact. Pt is using urinal to void. Bed locked low in position, side rails up and call light within reach. Pt instructed to call for assistance before getting out of bed. Pt will be monitored.
--- NOTE | 2019-02-26 00:16 | NUR ---
HAND-OFF: Report given to MELY Sears. Pt in stable condition.
[2019-02-26] MEDS: Vancomycin 1.25 GM in NS 275 ML IVPB SCH ×2 (01:40→11:18)
[2019-02-26 04:00] VITALS: BP 150/98
--- NOTE | 2019-02-26 05:16 | NUR ---
NURSE NOTES: Pt is in bed, asleep. No acute distress noted.
[2019-02-26] MEDS: Piperacillin/Tazobactam 3.375 GM in NS 110 ML IVPB SCH ×3 (05:47→22:14)
[2019-02-26] MEDS: NovoLOG Insulin Flexpen SUBQ SCH ×4 (05:48→20:22)
--- NOTE | 2019-02-26 07:05 | NUR ---
HAND-OFF: Report given to MELY Broussard.
--- NOTE | 2019-02-26 07:05 | NUR ---
NURSE NOTES: Received patient in bed, asleep. No SOB or cardiac distress. IV line intact, no s/s of infiltration. Wound dressing on left foot intact. Kept head of bed elevated. Bed kept in lowest position and locked. Call light within reach. Will continue plan of care.
[2019-02-26 08:00] VITALS: BP 143/99
[2019-02-26 08:07] LABS: HEMATOCRIT 39.1 % (42.0-52.0); HEMOGLOBIN 12.3 G/DL (14.2-18.0); LYMPHOCYTES % (AUTO) 39.6 % (20.0-45.0); MEAN CORPUSCULAR VOLUME 80 FL (80-99); MONOCYTES % (AUTO) 6.6 % (1.0-10.0); NEUTROPHILS % (AUTO) 49.9 % (45.0-75.0); PLATELET COUNT 290 K/UL (150-450); RED BLOOD COUNT 4.92 M/UL (4.70-6.10); RED CELL DISTRIBUTION WIDTH 14.5 % (11.6-14.8); WHITE BLOOD COUNT 6.4 K/UL (4.8-10.8)
[2019-02-26 08:38] LABS: ANION GAP 7 mmol/L (5-15); BLOOD UREA NITROGEN 6 mg/dL (7-18); CALCIUM 8.1 MG/DL (8.5-10.1); CARBON DIOXIDE 28 MMOL/L (21-32); CHLORIDE 105 MMOL/L (98-107); CREATININE 0.9 MG/DL (0.55-1.30); POTASSIUM 3.6 MMOL/L (3.5-5.1); SODIUM 140 MMOL/L (136-145)
[2019-02-26] MEDS: Heparin 5000 units/ml inj SUBQ SCH ×2 (08:53→20:21)
[2019-02-26 12:00] VITALS: BP 159/100
--- NOTE | 2019-02-26 12:38 | Surgery Progress Note ---
Surgery Progress Note Subjective Symptoms: improved, tolerating diet, passing flatus, pain decreased Objective Last 24 Hour Vital Signs Date Time Temp Pulse Resp B/P (MAP) Pulse Ox O2 Delivery O2 Flow Rate FiO2 02/26/19 12:00 98.2 81 21 159/100 (119) 97 02/26/19 08:00 97.6 79 22 143/99 (114) 100 02/26/19 04:00 98.0 83 20 150/98 (115) 99 02/26/19 00:00 98.0 61 20 151/87 (108) 94 02/25/19 21:00 Room Air 02/25/19 20:00 97.9 66 20 147/93 (111) 98 02/25/19 16:00 98.6 90 17 130/80 (97) 98 I&O Intake and Output 02/25/19 02/26/19 18:59 06:59 Intake Total 1503.333 ml 1955.830 ml Output Total 1900 ml Balance 1503.333 ml 55.830 ml Intake Oral 500 ml 460 ml IV Total 1003.333 ml 1495.830 ml Output Urine Total 1900 ml # Voids 3 Dressing: dry Wound: clean Cardiovascular: RSR Respiratory: clear Abdomen: soft, flat, present bowel sounds, decreased bowel sounds Extremities: edema, no cyanosis Laboratory Tests Test 02/25/19 16:10 02/26/19 05:31 Vancomycin Level Trough 9.5 ug/mL (5.0-12.0) White Blood Count 6.4 K/UL (4.8-10.8) Red Blood Count 4.92 M/UL (4.70-6.10) Hemoglobin 12.3 G/DL (14.2-18.0) L Hematocrit 39.1 % (42.0-52.0) L Mean Corpuscular Volume 80 FL (80-99) Mean Corpuscular Hemoglobin 25.0 PG (27.0-31.0) L Mean Corpuscular Hemoglobin Concent 31.4 G/DL (32.0-36.0) L Red Cell Distribution Width 14.5 % (11.6-14.8) Platelet Count 290 K/UL (150-450) Mean Platelet Volume 5.4 FL (6.5-10.1) L Neutrophils (%) (Auto) 49.9 % (45.0-75.0) Lymphocytes (%) (Auto) 39.6 % (20.0-45.0) Monocytes (%) (Auto) 6.6 % (1.0-10.0) Eosinophils (%) (Auto) 3.0 % (0.0-3.0) Basophils (%) (Auto) 1.0 % (0.0-2.0) Sodium Level 140 MMOL/L (136-145) Potassium Level 3.6 MMOL/L (3.5-5.1) Chloride Level 105 MMOL/L (98-107) Carbon Dioxide Level 28 MMOL/L (21-32) Anion Gap 7 mmol/L (5-15) Blood Urea Nitrogen 6 mg/dL (7-18) L Creatinine 0.9 MG/DL (0.55-1.30) Estimat Glomerular Filtration Rate > 60 mL/min (>60) Glucose Level 334 MG/DL (74-106) H Calcium Level 8.1 MG/DL (8.5-10.1) L Plan Problems: (1) Toe fracture Assessment & Plan: Findings: Plain x-ray clearly shows evidence of an acute comminuted fracture involving the distal phalangeal tuft of the first ray. Soft tissue swelling noted. The MRI examination demonstrates subcutaneous edema and skin thickening. There is ulceration clinically but that this is difficult to appreciate on the MRI examination. There may be a small plantar surface ulcer very distally. Please correlate clinically. There is also motion which limits evaluation. The MRI exam reflects the acute fracture involving the distal phalangeal tuft. There is associated bone marrow edema as expected with T2 hyperintense signal at the endosteal fractured ends of the bone. Superimposed osteomyelitis is not possible to exclude. IMPRESSION: Bone marrow edema in association with a comminuted fracture of the first distal phalangeal tuft. Associated soft tissue swelling. It is not possible to exclude superimposed osteomyelitis, if this is of concern clinically. (2) Edema (3) Cellulitis Assessment & Plan: Pt presented on admission with ulcers Plantar L 1st metatarsal and lateral L 5th metatarsal. Base of wound L st metatarsal noted to have soft necrosis with surrounding erythema. (L)1cm x (W)2.2cm . No odor or exudate noted. Ulcer lateral L 5th metatarsal has 100% fibrinous slough with macerated borders .Wound is malodorous.Small amt purulent exudate noted (L)1.3cm x (W)1cm x (D) 0.5cm . Pt verbalized he has had wounds on feet for 6 weeks and denied seeking medical attention for wounds. cont current care plan Abx as per ID Podiatry consult given fx will follow with recs thank you Ever Sánchez Feb 26, 2019 12:38
--- NOTE | 2019-02-26 13:33 | NUR ---
NURSE NOTES: Patient noted with two episodes of vomiting. MD notified, order carried out. Patient able to ambulate without assistance but supervised. Addendum: 02/26/19 at 1435 by MEEK BORRERO RN Patient noted with vomiting with food consistency, no blood.
--- NOTE | 2019-02-26 13:58 | NUR ---
NURSE NOTES: IV line leaking. Removed and reinserted by RN to right hand, infusing well.
--- NOTE | 2019-02-26 14:20 | Infectious Diseases Prog Note ---
Assessment/Plan Assessment/Plan A 1. left big toe ulcer infection 2. diabetes mellitus 3. left big toe fracture P 1. continue iv vancomycin, Zosyn 2. will follow up cultures Subjective ROS Limited/Unobtainable: No Constitutional: Reports: no symptoms Respiratory: Reports: no symptoms Cardiovascular: Reports: no symptoms Genitourinary: Reports: no symptoms Musculoskeletal: Reports: no symptoms Allergies: Coded Allergies: No Known Allergies (Unverified , 02/23/19) Objective Vital Signs Last 24 Hour Vital Signs Date Time Temp Pulse Resp B/P (MAP) Pulse Ox O2 Delivery O2 Flow Rate FiO2 02/26/19 12:00 98.2 81 21 159/100 (119) 97 02/26/19 08:00 97.6 79 22 143/99 (114) 100 02/26/19 04:00 98.0 83 20 150/98 (115) 99 02/26/19 00:00 98.0 61 20 151/87 (108) 94 02/25/19 21:00 Room Air 02/25/19 20:00 97.9 66 20 147/93 (111) 98 02/25/19 16:00 98.6 90 17 130/80 (97) 98 Height (Feet): 5 Height (Inches): 8.00 Weight (Pounds): 208 General Appearance: no acute distress HEENT: mucous membranes moist Respiratory/Chest: lungs clear Cardiovascular: normal rate Abdomen: soft, non tender Extremities: no edema Skin: other - left big toe callus & fifth toe ulcer Microbiology Date/Time Source Procedure Growth Status 02/25/19 13:00 Foot Left Gram Stain - Final Resulted 02/25/19 13:00 Foot Left Wound Culture - Preliminary NO GROWTH Resulted Laboratory Tests Test 02/25/19 16:10 02/26/19 05:31 Vancomycin Level Trough 9.5 ug/mL (5.0-12.0) White Blood Count 6.4 K/UL (4.8-10.8) Red Blood Count 4.92 M/UL (4.70-6.10) Hemoglobin 12.3 G/DL (14.2-18.0) L Hematocrit 39.1 % (42.0-52.0) L Mean Corpuscular Volume 80 FL (80-99) Mean Corpuscular Hemoglobin 25.0 PG (27.0-31.0) L Mean Corpuscular Hemoglobin Concent 31.4 G/DL (32.0-36.0) L Red Cell Distribution Width 14.5 % (11.6-14.8) Platelet Count 290 K/UL (150-450) Mean Platelet Volume 5.4 FL (6.5-10.1) L Neutrophils (%) (Auto) 49.9 % (45.0-75.0) Lymphocytes (%) (Auto) 39.6 % (20.0-45.0) Monocytes (%) (Auto) 6.6 % (1.0-10.0) Eosinophils (%) (Auto) 3.0 % (0.0-3.0) Basophils (%) (Auto) 1.0 % (0.0-2.0) Sodium Level 140 MMOL/L (136-145) Potassium Level 3.6 MMOL/L (3.5-5.1) Chloride Level 105 MMOL/L (98-107) Carbon Dioxide Level 28 MMOL/L (21-32) Anion Gap 7 mmol/L (5-15) Blood Urea Nitrogen 6 mg/dL (7-18) L Creatinine 0.9 MG/DL (0.55-1.30) Estimat Glomerular Filtration Rate > 60 mL/min (>60) Glucose Level 334 MG/DL (74-106) H Calcium Level 8.1 MG/DL (8.5-10.1) L Current Medications Medications (Trade) Dose Ordered Sig/Bashir Route PRN Reason Start Time Stop Time Status Last Admin Dose Admin Acetaminophen (Tylenol) 650 mg Q4H PRN ORAL Mild Pain/Temp > 100.5 02/23/19 20:30 03/25/19 20:29 Acetaminophen/ Hydrocodone Bitart ([place] 5/325) 1 tab Q4H PRN ORAL Moderate Pain (Pain Scale 4-6) 02/23/19 20:30 03/02/19 20:29 Acetaminophen/ Hydrocodone Bitart ([place] 5/325) 2 tab Q4H PRN ORAL severe pain 7-10 02/23/19 20:30 03/02/19 20:29 Al Hydroxide/Mg Hydroxide (Mylanta) 30 ml Q4H PRN ORAL upset stomach 02/23/19 20:30 03/25/19 20:29 Dextrose (Dextrose 50%) 25 ml Q30M PRN IV Hypoglycemia 02/23/19 20:30 03/25/19 20:29 Dextrose (Dextrose 50%) 50 ml Q30M PRN IV Hypoglycemia 02/23/19 20:30 03/25/19 20:29 Heparin Sodium (Porcine) (Heparin 5000 units/ml) 5,000 units EVERY 12 HOURS SUBQ 02/23/19 21:00 03/25/19 20:59 02/26/19 08:53 Insulin Aspart (NovoLOG) BEFORE MEALS AND HS SUBQ 02/23/19 21:00 03/25/19 20:59 02/26/19 11:51 Ondansetron HCl (Zofran) 4 mg Q6H PRN IVP Nausea & Vomiting 02/26/19 11:15 03/28/19 11:14 02/26/19 11:17 Pantoprazole (Protonix) 40 mg DAILY ORAL 02/24/19 09:00 03/26/19 08:59 02/26/19 08:51 Piperacillin Sod/ Tazobactam Sod 3.375 gm/Sodium Chloride 110 ml @ 27.5 mls/hr Q8HR IVPB 02/23/19 22:00 03/02/19 21:59 02/26/19 14:11 Sodium Chloride 1,000 ml @ 100 mls/hr Q10H IV 02/23/19 20:30 03/25/19 20:29 02/26/19 11:19 Vancomycin HCl (Vanco rx to dose) 1 ea DAILY PRN MISC Per rx protocol 02/23/19 20:30 03/25/19 20:29 Vancomycin HCl 1.25 gm/Sodium Chloride 275 ml @ 183.333 mls/hr Q8H IVPB 02/25/19 18:00 03/02/19 17:59 02/26/19 11:18 Jhonathan Gray MD Feb 26, 2019 14:20
[2019-02-26] MEDS ORDERED: NS 275ml ONE (14:43)
[2019-02-26] MEDS ORDERED: D5NS 1000ml IV ONE (14:43)
[2019-02-26 16:00] VITALS: BP 153/95
--- NOTE | 2019-02-26 17:40 | Pulmonology Progress Note ---
Assessment/Plan Assessment/Plan Pulmonary Progress Note Assessment/Plan: IMPRESSION: Cellulitis, hyperglycemia, noncompliance, toe ulcer, toe fracture. PLAN antibiotics MRI noted ESR better await ID clearance Subjective Allergies: Coded Allergies: No Known Allergies (Unverified , 02/23/19) Subjective care noted Objective Vital Signs Noted Laboratory Tests Noted 02/25/19 05:10: White Blood Count 6.9, Red Blood Count 4.74, Hemoglobin 12.1L, Hematocrit 37.8L , Mean Corpuscular Volume 80, Mean Corpuscular Hemoglobin 25.5L, Mean Corpuscular Hemoglobin Concent 32.0, Red Cell Distribution Width 13.0, Platelet Count 260, Mean Platelet Volume 5.9L, Neutrophils (%) (Auto) 52.5, Lymphocytes ( %) (Auto) 35.2, Monocytes (%) (Auto) 5.8, Eosinophils (%) (Auto) 5.4H, Basophils (%) (Auto) 1.1, Erythrocyte Sedimentation Rate 43H, Prothrombin Time 10.2, Prothromb Time International Ratio 1.0, Activated Partial Thromboplast Time 27, Sodium Level 141, Potassium Level 3.7, Chloride Level 105, Carbon Dioxide Level 26, Anion Gap 10, Blood Urea Nitrogen 7, Creatinine 0.8, Estimat Glomerular Filtration Rate > 60, Glucose Level 243H, Calcium Level 8.0L, Total Bilirubin 0.4, Aspartate Amino Transf (AST/SGOT) 12L, Alanine Aminotransferase ( ALT/SGPT) 11L, Alkaline Phosphatase 64, C-Reactive Protein, Quantitative 5.0H, Total Protein 6.6, Albumin 2.1L, Globulin 4.5, Albumin/Globulin Ratio 0.5L Height (Feet): 5 Height (Inches): 8.00 Weight (Pounds): 208 Objective GENERAL: A well-developed male, comfortable. NECK: Supple. LUNGS: Clear. CARDIAC: S1, S2. Regular rate and rhythm. ABDOMEN: Soft, nontender. EXTREMITIES: 3+ edema of the left lower extremity noted. Erythema and a superficial ulcer of the left great toe without any drainage. Subjective ROS Limited/Unobtainable: No Allergies: Coded Allergies: No Known Allergies (Unverified , 02/23/19) Objective Last 24 Hour Vital Signs Date Time Temp Pulse Resp B/P (MAP) Pulse Ox O2 Delivery O2 Flow Rate FiO2 02/26/19 16:00 97.7 62 20 153/95 (114) 97 02/26/19 12:00 98.2 81 21 159/100 (119) 97 02/26/19 09:00 Room Air 02/26/19 08:00 97.6 79 22 143/99 (114) 100 02/26/19 04:00 98.0 83 20 150/98 (115) 99 02/26/19 00:00 98.0 61 20 151/87 (108) 94 02/25/19 21:00 Room Air 02/25/19 20:00 97.9 66 20 147/93 (111) 98 Intake and Output 02/25/19 02/26/19 19:00 07:00 Intake Total 1503.333 ml 1955.830 ml Output Total 1900 ml Balance 1503.333 ml 55.830 ml Intake Oral 500 ml 460 ml IV Total 1003.333 ml 1495.830 ml Output Urine Total 1900 ml # Voids 3 Microbiology Date/Time Source Procedure Growth Status 02/25/19 13:00 Foot Left Gram Stain - Final Resulted 02/25/19 13:00 Foot Left Wound Culture - Preliminary NO GROWTH Resulted Laboratory Tests 02/26/19 05:31: White Blood Count 6.4, Red Blood Count 4.92, Hemoglobin 12.3L, Hematocrit 39.1L , Mean Corpuscular Volume 80, Mean Corpuscular Hemoglobin 25.0L, Mean Corpuscular Hemoglobin Concent 31.4L, Red Cell Distribution Width 14.5, Platelet Count 290, Mean Platelet Volume 5.4L, Neutrophils (%) (Auto) 49.9, Lymphocytes (%) (Auto) 39.6, Monocytes (%) (Auto) 6.6, Eosinophils (%) (Auto) 3.0, Basophils (%) (Auto) 1.0, Sodium Level 140, Potassium Level 3.6, Chloride Level 105, Carbon Dioxide Level 28, Anion Gap 7, Blood Urea Nitrogen 6L, Creatinine 0.9, Estimat Glomerular Filtration Rate > 60, Glucose Level 334H, Calcium Level 8.1L 02/26/19 16:55: Vancomycin Level Trough 24.6H Current Medications Medications (Trade) Dose Ordered Sig/Bashir Route PRN Reason Start Time Stop Time Status Last Admin Dose Admin Acetaminophen (Tylenol) 650 mg Q4H PRN ORAL Mild Pain/Temp > 100.5 02/23/19 20:30 03/25/19 20:29 Acetaminophen/ Hydrocodone Bitart ([place] 5/325) 1 tab Q4H PRN ORAL Moderate Pain (Pain Scale 4-6) 02/23/19 20:30 03/02/19 20:29 Acetaminophen/ Hydrocodone Bitart ([place] 5/325) 2 tab Q4H PRN ORAL severe pain 7-10 02/23/19 20:30 03/02/19 20:29 Al Hydroxide/Mg Hydroxide (Mylanta) 30 ml Q4H PRN ORAL upset stomach 02/23/19 20:30 03/25/19 20:29 Dextrose (Dextrose 50%) 25 ml Q30M PRN IV Hypoglycemia 02/23/19 20:30 03/25/19 20:29 Dextrose (Dextrose 50%) 50 ml Q30M PRN IV Hypoglycemia 02/23/19 20:30 03/25/19 20:29 Heparin Sodium (Porcine) (Heparin 5000 units/ml) 5,000 units EVERY 12 HOURS SUBQ 02/23/19 21:00 03/25/19 20:59 02/26/19 08:53 Insulin Aspart (NovoLOG) BEFORE MEALS AND HS SUBQ 02/23/19 21:00 03/25/19 20:59 02/26/19 16:52 Ondansetron HCl (Zofran) 4 mg Q6H PRN IVP Nausea & Vomiting 02/26/19 11:15 03/28/19 11:14 02/26/19 11:17 Pantoprazole (Protonix) 40 mg DAILY ORAL 02/24/19 09:00 03/26/19 08:59 02/26/19 08:51 Piperacillin Sod/ Tazobactam Sod 3.375 gm/Sodium Chloride 110 ml @ 27.5 mls/hr Q8HR IVPB 02/23/19 22:00 03/02/19 21:59 02/26/19 14:11 Sodium Chloride 1,000 ml @ 100 mls/hr Q10H IV 02/23/19 20:30 03/25/19 20:29 02/26/19 11:19 Vancomycin HCl (Vanco rx to dose) 1 ea DAILY PRN MISC Per rx protocol 02/23/19 20:30 03/25/19 20:29 Dayron Gama MD Feb 26, 2019 17:40
--- NOTE | 2019-02-26 19:30 | NUR ---
NURSE NOTES: Patient reported that he vomited x1 food consistency. Endorsed to the next shift to give zofran.Patient is stable, no change of condition, denies abdominal pain, abdomen is soft to touch.
--- NOTE | 2019-02-26 19:45 | NUR ---
HAND-OFF: Report given to Radha.
[2019-02-26 20:00] VITALS: BP 150/87
--- NOTE | 2019-02-26 20:04 | NUR ---
NURSE NOTES: Pt received in bed asleep, no c/o pain or signs of distress, able to make needs known, call light within reach, will continue to monitor.
[2019-02-27] VITALS: BP 127/89
[2019-02-27 04:00] VITALS: BP 144/88
[2019-02-27] MEDS ORDERED: Vancomycin 1.5gm/NS Premix IVPB SCH (06:00)
[2019-02-27] MEDS: NovoLOG Insulin Flexpen SUBQ SCH ×4 (06:36→20:59)
[2019-02-27] MEDS: Piperacillin/Tazobactam 3.375 GM in NS 110 ML IVPB SCH (06:39)
[2019-02-27 07:11] LABS: BASOPHILS % (AUTO) 0.6 % (0.0-2.0); HEMATOCRIT 44.5 % (42.0-52.0); HEMOGLOBIN 13.9 G/DL (14.2-18.0); LYMPHOCYTES % (AUTO) 32.8 % (20.0-45.0); MEAN CORPUSCULAR VOLUME 80 FL (80-99); MONOCYTES % (AUTO) 5.3 % (1.0-10.0); NEUTROPHILS % (AUTO) 60.3 % (45.0-75.0); PLATELET COUNT 314 K/UL (150-450); RED BLOOD COUNT 5.58 M/UL (4.70-6.10); RED CELL DISTRIBUTION WIDTH 14.5 % (11.6-14.8); WHITE BLOOD COUNT 5.9 K/UL (4.8-10.8)
[2019-02-27 07:18] LABS: ANION GAP 10 mmol/L (5-15); BLOOD UREA NITROGEN 4 mg/dL (7-18); CALCIUM 8.5 MG/DL (8.5-10.1); CARBON DIOXIDE 28 MMOL/L (21-32); CHLORIDE 101 MMOL/L (98-107); CREATININE 0.9 MG/DL (0.55-1.30); POTASSIUM 3.8 MMOL/L (3.5-5.1); SODIUM 139 MMOL/L (136-145)
--- NOTE | 2019-02-27 07:44 | NUR ---
NURSE NOTES: Received patient on bed asleep. No SOB or cardiac distress. IV line intact and patent, no s/s of infiltration. Head of bed elevated. Bed kept on lowest position and locked. Call light within reach. Will continue plan of care.
--- NOTE | 2019-02-27 07:44 | NUR ---
HAND-OFF: Report given to Steph Gleason RN and MELY Torres.
[2019-02-27 08:00] VITALS: BP 140/80
--- NOTE | 2019-02-27 08:00 | NUR ---
NURSE NOTES: Another IV line inserted on left hand. Procedure tolerated by patient well. With complaints of nausea, PRN Zofran given. Will continue to monitor.
[2019-02-27] MEDS: Heparin 5000 units/ml inj SUBQ SCH ×2 (09:06→20:58)
--- NOTE | 2019-02-27 10:35 | Infectious Diseases Prog Note ---
Assessment/Plan Assessment/Plan A 1. left big toe ulcer infection with Strep group A 2. diabetes mellitus 3. left big toe fracture P 1. Discontinue iv vancomycin, Zosyn 2. start on Ancef Subjective ROS Limited/Unobtainable: Yes Constitutional: Denies: fever Allergies: Coded Allergies: No Known Allergies (Unverified , 02/23/19) Objective Vital Signs Last 24 Hour Vital Signs Date Time Temp Pulse Resp B/P (MAP) Pulse Ox O2 Delivery O2 Flow Rate FiO2 02/27/19 08:00 98.0 70 19 140/80 (100) 98 02/27/19 04:00 98.5 67 18 144/88 (106) 99 02/27/19 00:00 98.7 94 20 127/89 (102) 98 02/26/19 21:00 Room Air 02/26/19 20:00 98.6 73 18 150/87 (108) 99 02/26/19 16:00 97.7 62 20 153/95 (114) 97 02/26/19 12:00 98.2 81 21 159/100 (119) 97 Height (Feet): 5 Height (Inches): 8.00 Weight (Pounds): 208 General Appearance: no acute distress HEENT: mucous membranes moist Respiratory/Chest: lungs clear Cardiovascular: normal rate Abdomen: soft, non tender Skin: ulcers, other - left foot Neurologic/Psychiatric: other - sleeping Microbiology Date/Time Source Procedure Growth Status 02/25/19 13:00 Foot Left Gram Stain - Final Resulted 02/25/19 13:00 Wound Culture - Preliminary Streptococcus Pyogenes Grp A Resulted Laboratory Tests Test 02/26/19 16:55 02/27/19 06:30 Vancomycin Level Trough 24.6 ug/mL (5.0-12.0) H White Blood Count 5.9 K/UL (4.8-10.8) Red Blood Count 5.58 M/UL (4.70-6.10) Hemoglobin 13.9 G/DL (14.2-18.0) L Hematocrit 44.5 % (42.0-52.0) Mean Corpuscular Volume 80 FL (80-99) Mean Corpuscular Hemoglobin 24.9 PG (27.0-31.0) L Mean Corpuscular Hemoglobin Concent 31.2 G/DL (32.0-36.0) L Red Cell Distribution Width 14.5 % (11.6-14.8) Platelet Count 314 K/UL (150-450) Mean Platelet Volume 5.5 FL (6.5-10.1) L Neutrophils (%) (Auto) 60.3 % (45.0-75.0) Lymphocytes (%) (Auto) 32.8 % (20.0-45.0) Monocytes (%) (Auto) 5.3 % (1.0-10.0) Eosinophils (%) (Auto) 1.0 % (0.0-3.0) Basophils (%) (Auto) 0.6 % (0.0-2.0) Sodium Level 139 MMOL/L (136-145) Potassium Level 3.8 MMOL/L (3.5-5.1) Chloride Level 101 MMOL/L (98-107) Carbon Dioxide Level 28 MMOL/L (21-32) Anion Gap 10 mmol/L (5-15) Blood Urea Nitrogen 4 mg/dL (7-18) L Creatinine 0.9 MG/DL (0.55-1.30) Estimat Glomerular Filtration Rate > 60 mL/min (>60) Glucose Level 239 MG/DL (74-106) H Calcium Level 8.5 MG/DL (8.5-10.1) Current Medications Medications (Trade) Dose Ordered Sig/Bashir Route PRN Reason Start Time Stop Time Status Last Admin Dose Admin Acetaminophen (Tylenol) 650 mg Q4H PRN ORAL Mild Pain/Temp > 100.5 02/23/19 20:30 03/25/19 20:29 Acetaminophen/ Hydrocodone Bitart ([place] 5/325) 1 tab Q4H PRN ORAL Moderate Pain (Pain Scale 4-6) 02/23/19 20:30 03/02/19 20:29 Acetaminophen/ Hydrocodone Bitart ([place] 5/325) 2 tab Q4H PRN ORAL severe pain 7-10 02/23/19 20:30 03/02/19 20:29 Al Hydroxide/Mg Hydroxide (Mylanta) 30 ml Q4H PRN ORAL upset stomach 02/23/19 20:30 03/25/19 20:29 Dextrose (Dextrose 50%) 25 ml Q30M PRN IV Hypoglycemia 02/23/19 20:30 03/25/19 20:29 Dextrose (Dextrose 50%) 50 ml Q30M PRN IV Hypoglycemia 02/23/19 20:30 03/25/19 20:29 Heparin Sodium (Porcine) (Heparin 5000 units/ml) 5,000 units EVERY 12 HOURS SUBQ 02/23/19 21:00 03/25/19 20:59 02/27/19 09:06 Insulin Aspart (NovoLOG) BEFORE MEALS AND HS SUBQ 02/23/19 21:00 03/25/19 20:59 02/27/19 06:36 Ondansetron HCl (Zofran) 4 mg Q6H PRN IVP Nausea & Vomiting 02/26/19 11:15 03/28/19 11:14 02/27/19 09:08 Pantoprazole (Protonix) 40 mg DAILY ORAL 02/24/19 09:00 03/26/19 08:59 02/27/19 09:05 Piperacillin Sod/ Tazobactam Sod 3.375 gm/Sodium Chloride 110 ml @ 27.5 mls/hr Q8HR IVPB 02/23/19 22:00 03/02/19 21:59 02/27/19 06:39 Sodium Chloride 1,000 ml @ 100 mls/hr Q10H IV 02/23/19 20:30 03/25/19 20:29 02/27/19 02:24 Vancomycin HCl (Vanco rx to dose) 1 ea DAILY PRN MISC Per rx protocol 02/23/19 20:30 03/25/19 20:29 Vancomycin/Sodium Chloride 275 ml @ 137.5 mls/ hr Q12HR@0600,1800 IVPB 02/27/19 06:00 03/04/19 05:59 02/27/19 05:27 Jhonathan Gray MD Feb 27, 2019 10:35
--- NOTE | 2019-02-27 13:53 | NUR ---
NURSE NOTES: Patient still complains of nausea, but no episode of vomiting noted. Was able to eat a portion of his lunch. made aware.
--- NOTE | 2019-02-27 13:58 | NUR ---
NURSE NOTES: Patient still nauseous, Dr. Gama made aware. No new orders.
[2019-02-27] MEDS: ceFAZolin sod 1 GM in D5W 55 ML IVPB SCH ×2 (14:21→22:25)
--- NOTE | 2019-02-27 14:38 | Pulmonology Progress Note ---
Assessment/Plan Assessment/Plan Pulmonary Progress Note Assessment/Plan: IMPRESSION: Cellulitis, hyperglycemia, noncompliance, toe ulcer, toe fracture. PLAN antibiotics MRI noted ESR better await ID clearance occasional nausea Subjective Allergies: Coded Allergies: No Known Allergies (Unverified , 02/23/19) Subjective care noted Objective Vital Signs Noted Height (Inches): 8.00 Weight (Pounds): 208 Objective GENERAL: A well-developed male, comfortable. NECK: Supple. LUNGS: Clear. CARDIAC: S1, S2. Regular rate and rhythm. ABDOMEN: Soft, nontender. EXTREMITIES: 3+ edema of the left lower extremity noted. Erythema and a superficial ulcer of the left great toe without any drainage. Labs: noted Subjective ROS Limited/Unobtainable: No Allergies: Coded Allergies: No Known Allergies (Unverified , 02/23/19) Objective Last 24 Hour Vital Signs Date Time Temp Pulse Resp B/P (MAP) Pulse Ox O2 Delivery O2 Flow Rate FiO2 02/27/19 09:00 Room Air 02/27/19 08:00 98.0 70 19 140/80 (100) 98 02/27/19 04:00 98.5 67 18 144/88 (106) 99 02/27/19 00:00 98.7 94 20 127/89 (102) 98 02/26/19 21:00 Room Air 02/26/19 20:00 98.6 73 18 150/87 (108) 99 02/26/19 16:00 97.7 62 20 153/95 (114) 97 Intake and Output 02/26/19 02/27/19 19:00 07:00 Intake Total 2365.0 ml 527.5 ml Output Total 1500 ml Balance 2365.0 ml -972.5 ml Intake Oral 1400 ml IV Total 965.0 ml 527.5 ml Output Urine Total 1500 ml # Voids 2 # Bowel Movements 1 Microbiology Date/Time Source Procedure Growth Status 02/25/19 13:00 Foot Left Gram Stain - Final Resulted 02/25/19 13:00 Wound Culture - Preliminary Streptococcus Pyogenes Grp A Resulted Laboratory Tests 02/26/19 16:55: Vancomycin Level Trough 24.6H 02/27/19 06:30: White Blood Count 5.9, Red Blood Count 5.58, Hemoglobin 13.9L, Hematocrit 44.5, Mean Corpuscular Volume 80, Mean Corpuscular Hemoglobin 24.9L, Mean Corpuscular Hemoglobin Concent 31.2L, Red Cell Distribution Width 14.5, Platelet Count 314, Mean Platelet Volume 5.5L, Neutrophils (%) (Auto) 60.3, Lymphocytes (%) (Auto) 32.8, Monocytes (%) (Auto) 5.3, Eosinophils (%) (Auto) 1.0, Basophils (%) (Auto ) 0.6, Sodium Level 139, Potassium Level 3.8, Chloride Level 101, Carbon Dioxide Level 28, Anion Gap 10, Blood Urea Nitrogen 4L, Creatinine 0.9, Estimat Glomerular Filtration Rate > 60, Glucose Level 239H, Calcium Level 8.5 Current Medications Medications (Trade) Dose Ordered Sig/Bashir Route PRN Reason Start Time Stop Time Status Last Admin Dose Admin Acetaminophen (Tylenol) 650 mg Q4H PRN ORAL Mild Pain/Temp > 100.5 02/23/19 20:30 03/25/19 20:29 Acetaminophen/ Hydrocodone Bitart ([place] 5/325) 1 tab Q4H PRN ORAL Moderate Pain (Pain Scale 4-6) 02/23/19 20:30 03/02/19 20:29 Acetaminophen/ Hydrocodone Bitart ([place] 5/325) 2 tab Q4H PRN ORAL severe pain 7-10 02/23/19 20:30 03/02/19 20:29 Al Hydroxide/Mg Hydroxide (Mylanta) 30 ml Q4H PRN ORAL upset stomach 02/23/19 20:30 03/25/19 20:29 Cefazolin Sodium 1 gm/Dextrose 55 ml @ 110 mls/hr Q8HR IVPB 02/27/19 14:00 03/06/19 13:59 02/27/19 14:21 Dextrose (Dextrose 50%) 25 ml Q30M PRN IV Hypoglycemia 02/23/19 20:30 03/25/19 20:29 Dextrose (Dextrose 50%) 50 ml Q30M PRN IV Hypoglycemia 02/23/19 20:30 03/25/19 20:29 Heparin Sodium (Porcine) (Heparin 5000 units/ml) 5,000 units EVERY 12 HOURS SUBQ 02/23/19 21:00 03/25/19 20:59 02/27/19 09:06 Insulin Aspart (NovoLOG) BEFORE MEALS AND HS SUBQ 02/23/19 21:00 03/25/19 20:59 02/27/19 11:50 Ondansetron HCl (Zofran) 4 mg Q6H PRN IVP Nausea & Vomiting 02/26/19 11:15 03/28/19 11:14 02/27/19 09:08 Pantoprazole (Protonix) 40 mg DAILY ORAL 02/24/19 09:00 03/26/19 08:59 02/27/19 09:05 Sodium Chloride 1,000 ml @ 100 mls/hr Q10H IV 02/23/19 20:30 03/25/19 20:29 02/27/19 02:24 Dayron Gaam MD Feb 27, 2019 14:38
--- NOTE | 2019-02-27 14:49 | Cardiology Report ---
APPROVED REPORT EKG Measurement Heart [id number] Normal sinus rhythm Prolonged QT Abnormal ECG
--- NOTE | 2019-02-27 15:51 | Surgery Progress Note ---
Surgery Progress Note Subjective Additional Comments Overall improved. No complaints. Tolerating diet. Has not had a bowel movement. Exam improved. Edema improved. Objective Last 24 Hour Vital Signs Date Time Temp Pulse Resp B/P (MAP) Pulse Ox O2 Delivery O2 Flow Rate FiO2 02/27/19 09:00 Room Air 02/27/19 08:00 98.0 70 19 140/80 (100) 98 02/27/19 04:00 98.5 67 18 144/88 (106) 99 02/27/19 00:00 98.7 94 20 127/89 (102) 98 02/26/19 21:00 Room Air 02/26/19 20:00 98.6 73 18 150/87 (108) 99 02/26/19 16:00 97.7 62 20 153/95 (114) 97 I&O Intake and Output 02/26/19 02/27/19 19:00 07:00 Intake Total 2365.0 ml 527.5 ml Output Total 1500 ml Balance 2365.0 ml -972.5 ml Intake Oral 1400 ml IV Total 965.0 ml 527.5 ml Output Urine Total 1500 ml # Voids 2 # Bowel Movements 1 Dressing: dry Wound: clean Cardiovascular: RSR Respiratory: clear Abdomen: soft, flat, present bowel sounds, non-distended Extremities: edema, no tenderness, no cyanosis Laboratory Tests Test 02/26/19 16:55 02/27/19 06:30 Vancomycin Level Trough 24.6 ug/mL (5.0-12.0) H White Blood Count 5.9 K/UL (4.8-10.8) Red Blood Count 5.58 M/UL (4.70-6.10) Hemoglobin 13.9 G/DL (14.2-18.0) L Hematocrit 44.5 % (42.0-52.0) Mean Corpuscular Volume 80 FL (80-99) Mean Corpuscular Hemoglobin 24.9 PG (27.0-31.0) L Mean Corpuscular Hemoglobin Concent 31.2 G/DL (32.0-36.0) L Red Cell Distribution Width 14.5 % (11.6-14.8) Platelet Count 314 K/UL (150-450) Mean Platelet Volume 5.5 FL (6.5-10.1) L Neutrophils (%) (Auto) 60.3 % (45.0-75.0) Lymphocytes (%) (Auto) 32.8 % (20.0-45.0) Monocytes (%) (Auto) 5.3 % (1.0-10.0) Eosinophils (%) (Auto) 1.0 % (0.0-3.0) Basophils (%) (Auto) 0.6 % (0.0-2.0) Sodium Level 139 MMOL/L (136-145) Potassium Level 3.8 MMOL/L (3.5-5.1) Chloride Level 101 MMOL/L (98-107) Carbon Dioxide Level 28 MMOL/L (21-32) Anion Gap 10 mmol/L (5-15) Blood Urea Nitrogen 4 mg/dL (7-18) L Creatinine 0.9 MG/DL (0.55-1.30) Estimat Glomerular Filtration Rate > 60 mL/min (>60) Glucose Level 239 MG/DL (74-106) H Calcium Level 8.5 MG/DL (8.5-10.1) Plan Problems: (1) Toe fracture Assessment & Plan: Findings: Plain x-ray clearly shows evidence of an acute comminuted fracture involving the distal phalangeal tuft of the first ray. Soft tissue swelling noted. The MRI examination demonstrates subcutaneous edema and skin thickening. There is ulceration clinically but that this is difficult to appreciate on the MRI examination. There may be a small plantar surface ulcer very distally. Please correlate clinically. There is also motion which limits evaluation. The MRI exam reflects the acute fracture involving the distal phalangeal tuft. There is associated bone marrow edema as expected with T2 hyperintense signal at the endosteal fractured ends of the bone. Superimposed osteomyelitis is not possible to exclude. IMPRESSION: Bone marrow edema in association with a comminuted fracture of the first distal phalangeal tuft. Associated soft tissue swelling. It is not possible to exclude superimposed osteomyelitis, if this is of concern clinically. (2) Edema (3) Cellulitis Assessment & Plan: Pt presented on admission with ulcers Plantar L 1st metatarsal and lateral L 5th metatarsal. Base of wound L st metatarsal noted to have soft necrosis with surrounding erythema. (L)1cm x (W)2.2cm . No odor or exudate noted. Ulcer lateral L 5th metatarsal has 100% fibrinous slough with macerated borders .Wound is malodorous.Small amt purulent exudate noted (L)1.3cm x (W)1cm x (D) 0.5cm . Pt verbalized he has had wounds on feet for 6 weeks and denied seeking medical attention for wounds. cont current care plan Abx as per ID Podiatry consult given fx will follow with recs thank you Additional Comments Bowel regimen Ever Sánchez Feb 27, 2019 15:51
[2019-02-27 16:00] VITALS: BP 138/79
[2019-02-27] MEDS ORDERED: Milk of Magnesia 30ml Ud ORAL PRN (16:00)
[2019-02-27] MEDS ORDERED: Milk of Magnesia 30ml Ud ORAL SCH (16:00)
[2019-02-27] MEDS: Docusate 100mg cap ORAL SCH (17:24)
--- NOTE | 2019-02-27 17:59 | NUR ---
NURSE NOTES: Patient was seen by Dr. Gama, RN received new order to do lipase blood test in am and Dr. Gama said to monitor for nausea for now since patient is taking protonix and zofran. Patient denies nausea due to zofran given earlier.Will continue to monitor.
--- NOTE | 2019-02-27 19:20 | NUR ---
HAND-OFF: Report given to Radha.
--- NOTE | 2019-02-27 19:31 | NUR ---
NURSE NOTES: Pt received in bed alseep, able to make needs known, dressing on foot changed by AM nurse, per AM nurse pt w/o vomiting but nauseous, IV fluids running, IV intact, will continue to monitor.
[2019-02-27 20:00] VITALS: BP 146/84
[2019-02-28] VITALS: BP 156/89
[2019-02-28 04:00] VITALS: BP 156/82
[2019-02-28] MEDS: ceFAZolin sod 1 GM in D5W 55 ML IVPB SCH (05:29)
[2019-02-28] MEDS: NovoLOG Insulin Flexpen SUBQ SCH ×2 (06:17→11:54)
--- NOTE | 2019-02-28 07:26 | NUR ---
HAND-OFF: Report given to MELY Padgett.
--- NOTE | 2019-02-28 07:40 | NUR ---
NURSE NOTES: Received patient on bed, asleep. IV site intact and patent. Bed in low and locked position, call light in reach. No signs of respiratory distress or pain. Room board updated, will continue to monitor.
[2019-02-28 08:49] VITALS: BP 140/76
[2019-02-28 09:10] LABS: BASOPHILS % (AUTO) 0.9 % (0.0-2.0); EOSINOPHILS % (AUTO) 0.4 % (0.0-3.0); HEMOGLOBIN 12.9 G/DL (14.2-18.0); LYMPHOCYTES % (AUTO) 29.4 % (20.0-45.0); MEAN CORPUSCULAR VOLUME 78 FL (80-99); MONOCYTES % (AUTO) 5.6 % (1.0-10.0); NEUTROPHILS % (AUTO) 63.7 % (45.0-75.0); PLATELET COUNT 291 K/UL (150-450); RED BLOOD COUNT 5.13 M/UL (4.70-6.10); RED CELL DISTRIBUTION WIDTH 14.1 % (11.6-14.8)
[2019-02-28] MEDS: Docusate 100mg cap ORAL SCH (09:16)
[2019-02-28] MEDS: Heparin 5000 units/ml inj SUBQ SCH (09:17)
[2019-02-28 09:23] LABS: BLOOD UREA NITROGEN 5 mg/dL (7-18); CALCIUM 8.2 MG/DL (8.5-10.1); CARBON DIOXIDE 30 MMOL/L (21-32); CREATININE 0.8 MG/DL (0.55-1.30)
[2019-02-28 09:37] LABS: CHLORIDE 105 MMOL/L (98-107); POTASSIUM 3.2 MMOL/L (3.5-5.1); SODIUM 141 MMOL/L (136-145)
--- NOTE | 2019-02-28 11:22 | Infectious Diseases Prog Note ---
Assessment/Plan Assessment/Plan antibiotics : ancef A 1. left big toe ulcer infection with group A streptococcus 2. diabetes mellitus 3. left big toe fracture P 1. d/c ancef 2. start and continue po keflex 8 days 3. will follow up cultures Subjective Constitutional: Denies: fever, chills Respiratory: Denies: shortness of breath, dry cough Gastrointestinal/Abdominal: Reports: nausea; Denies: vomiting, diarrhea Musculoskeletal: Denies: pain Allergies: Coded Allergies: No Known Allergies (Unverified , 02/23/19) Objective Vital Signs Last 24 Hour Vital Signs Date Time Temp Pulse Resp B/P (MAP) Pulse Ox O2 Delivery O2 Flow Rate FiO2 02/28/19 09:00 Room Air 02/28/19 08:49 98.9 78 16 140/76 (97) 98 02/28/19 04:00 98.6 65 20 156/82 (106) 97 02/28/19 00:00 98.8 77 20 156/89 (111) 98 02/27/19 21:00 Room Air 02/27/19 20:00 99.1 65 20 146/84 (104) 98 02/27/19 16:00 97.6 78 18 138/79 (98) 98 Height (Feet): 5 Height (Inches): 8.00 Weight (Pounds): 208 Respiratory/Chest: lungs clear Cardiovascular: normal rate, regular rhythm, no gallop/murmur Abdomen: soft, non tender Extremities: no edema, other - left leg erythema decreased Microbiology Date/Time Source Procedure Growth Status 02/25/19 13:00 Foot Left Gram Stain - Final Complete 02/25/19 13:00 Wound Culture - Final Streptococcus Pyogenes Grp A Staphylococcus Sp Coag Neg Complete Laboratory Tests Test 02/28/19 08:35 White Blood Count 6.0 K/UL (4.8-10.8) Red Blood Count 5.13 M/UL (4.70-6.10) Hemoglobin 12.9 G/DL (14.2-18.0) L Hematocrit 40.0 % (42.0-52.0) L Mean Corpuscular Volume 78 FL (80-99) L Mean Corpuscular Hemoglobin 25.1 PG (27.0-31.0) L Mean Corpuscular Hemoglobin Concent 32.2 G/DL (32.0-36.0) Red Cell Distribution Width 14.1 % (11.6-14.8) Platelet Count 291 K/UL (150-450) Mean Platelet Volume 5.7 FL (6.5-10.1) L Neutrophils (%) (Auto) 63.7 % (45.0-75.0) Lymphocytes (%) (Auto) 29.4 % (20.0-45.0) Monocytes (%) (Auto) 5.6 % (1.0-10.0) Eosinophils (%) (Auto) 0.4 % (0.0-3.0) Basophils (%) (Auto) 0.9 % (0.0-2.0) Sodium Level 141 MMOL/L (136-145) Potassium Level 3.2 MMOL/L (3.5-5.1) L Chloride Level 105 MMOL/L (98-107) Carbon Dioxide Level 30 MMOL/L (21-32) Blood Urea Nitrogen 5 mg/dL (7-18) L Creatinine 0.8 MG/DL (0.55-1.30) Estimat Glomerular Filtration Rate > 60 mL/min (>60) Glucose Level 211 MG/DL (74-106) H Calcium Level 8.2 MG/DL (8.5-10.1) L Lipase 66 U/L (73-393) L Current Medications Medications (Trade) Dose Ordered Sig/Bashir Route PRN Reason Start Time Stop Time Status Last Admin Dose Admin Acetaminophen (Tylenol) 650 mg Q4H PRN ORAL Mild Pain/Temp > 100.5 02/23/19 20:30 03/25/19 20:29 Acetaminophen/ Hydrocodone Bitart ([place] 5/325) 1 tab Q4H PRN ORAL Moderate Pain (Pain Scale 4-6) 02/23/19 20:30 03/02/19 20:29 Acetaminophen/ Hydrocodone Bitart ([place] 5/325) 2 tab Q4H PRN ORAL severe pain 7-10 02/23/19 20:30 03/02/19 20:29 Al Hydroxide/Mg Hydroxide (Mylanta) 30 ml Q4H PRN ORAL upset stomach 02/23/19 20:30 03/25/19 20:29 Cefazolin Sodium 1 gm/Dextrose 55 ml @ 110 mls/hr Q8HR IVPB 02/27/19 14:00 10//19 13:59 02/28/19 05:29 Dextrose (Dextrose 50%) 25 ml Q30M PRN IV Hypoglycemia 02/23/19 20:30 03/25/19 20:29 Dextrose (Dextrose 50%) 50 ml Q30M PRN IV Hypoglycemia 02/23/19 20:30 03/25/19 20:29 Docusate Sodium (Colace) 100 mg TWICE A DAY ORAL 02/27/19 18:00 03/29/19 17:59 02/28/19 09:16 Heparin Sodium (Porcine) (Heparin 5000 units/ml) 5,000 units EVERY 12 HOURS SUBQ 02/23/19 21:00 03/25/19 20:59 02/28/19 09:17 Insulin Aspart (NovoLOG) BEFORE MEALS AND HS SUBQ 02/23/19 21:00 03/25/19 20:59 02/28/19 06:17 Magnesium Hydroxide (Mom) 30 ml DAILYPRN PRN ORAL Constipation 02/27/19 16:00 03/29/19 15:59 Ondansetron HCl (Zofran) 4 mg Q6H PRN IVP Nausea & Vomiting 02/26/19 11:15 03/28/19 11:14 02/27/19 17:29 Pantoprazole (Protonix) 40 mg DAILY ORAL 02/24/19 09:00 03/26/19 08:59 02/28/19 09:16 Sodium Chloride 1,000 ml @ 100 mls/hr Q10H IV 02/23/19 20:30 03/25/19 20:29 02/28/19 03:44 Leigh Ann Pisano MD Feb 28, 2019 11:22
[2019-02-28 12:00] VITALS: BP 134/86
[2019-02-28] MEDS ORDERED: Cephalexin 500mg cap ORAL SCH (12:00)
--- NOTE | 2019-02-28 13:47 | Pulmonology Progress Note ---
Assessment/Plan Assessment/Plan Pulmonary Progress Note Assessment/Plan: IMPRESSION: Cellulitis, hyperglycemia, noncompliance, toe ulcer, toe fracture. PLAN antibiotics per ID MRI noted ESR better await ID clearance occasional nausea Subjective Allergies: Coded Allergies: No Known Allergies (Unverified , 02/23/19) Subjective care noted Objective Vital Signs Noted Height (Inches): 8.00 Weight (Pounds): 208 Objective GENERAL: A well-developed male, comfortable. NECK: Supple. LUNGS: Clear. CARDIAC: S1, S2. Regular rate and rhythm. ABDOMEN: Soft, nontender. EXTREMITIES: 3+ edema of the left lower extremity noted. Erythema and a superficial ulcer of the left great toe without any drainage. Labs: noted MRI: Bone marrow edema in association with a comminuted fracture of the first distal phalangeal tuft. Associated soft tissue swelling. It is not possible to exclude superimposed osteomyelitis, if this is of concern clinically. Subjective ROS Limited/Unobtainable: No Allergies: Coded Allergies: No Known Allergies (Unverified , 02/23/19) Objective Last 24 Hour Vital Signs Date Time Temp Pulse Resp B/P (MAP) Pulse Ox O2 Delivery O2 Flow Rate FiO2 02/28/19 09:00 Room Air 02/28/19 08:49 98.9 78 16 140/76 (97) 98 02/28/19 04:00 98.6 65 20 156/82 (106) 97 02/28/19 00:00 98.8 77 20 156/89 (111) 98 02/27/19 21:00 Room Air 02/27/19 20:00 99.1 65 20 146/84 (104) 98 02/27/19 16:00 97.6 78 18 138/79 (98) 98 Intake and Output 02/27/19 02/28/19 19:00 07:00 Intake Total 2415 ml 1290 ml Output Total 1610 ml Balance 2415 ml -320 ml Intake Oral 1460 ml 480 ml IV Total 955 ml 810 ml Output Urine Total 1610 ml # Voids 8 Laboratory Tests 02/28/19 08:35: White Blood Count 6.0, Red Blood Count 5.13, Hemoglobin 12.9L, Hematocrit 40.0L , Mean Corpuscular Volume 78L, Mean Corpuscular Hemoglobin 25.1L, Mean Corpuscular Hemoglobin Concent 32.2, Red Cell Distribution Width 14.1, Platelet Count 291, Mean Platelet Volume 5.7L, Neutrophils (%) (Auto) 63.7, Lymphocytes ( %) (Auto) 29.4, Monocytes (%) (Auto) 5.6, Eosinophils (%) (Auto) 0.4, Basophils (%) (Auto) 0.9, Sodium Level 141, Potassium Level 3.2L, Chloride Level 105, Carbon Dioxide Level 30, Blood Urea Nitrogen 5L, Creatinine 0.8, Estimat Glomerular Filtration Rate > 60, Glucose Level 211H, Calcium Level 8.2L, Lipase 66L Current Medications Medications (Trade) Dose Ordered Sig/Bashir Route PRN Reason Start Time Stop Time Status Last Admin Dose Admin Acetaminophen (Tylenol) 650 mg Q4H PRN ORAL Mild Pain/Temp > 100.5 02/23/19 20:30 03/25/19 20:29 Acetaminophen/ Hydrocodone Bitart ([place] 5/325) 1 tab Q4H PRN ORAL Moderate Pain (Pain Scale 4-6) 02/23/19 20:30 03/02/19 20:29 Acetaminophen/ Hydrocodone Bitart ([place] 5/325) 2 tab Q4H PRN ORAL severe pain 7-10 02/23/19 20:30 03/02/19 20:29 Al Hydroxide/Mg Hydroxide (Mylanta) 30 ml Q4H PRN ORAL upset stomach 02/23/19 20:30 03/25/19 20:29 Cephalexin (Keflex) 500 mg Q6HR ORAL 02/28/19 12:00 03/07/19 11:59 02/28/19 11:55 Dextrose (Dextrose 50%) 25 ml Q30M PRN IV Hypoglycemia 02/23/19 20:30 03/25/19 20:29 Dextrose (Dextrose 50%) 50 ml Q30M PRN IV Hypoglycemia 02/23/19 20:30 03/25/19 20:29 Docusate Sodium (Colace) 100 mg TWICE A DAY ORAL 02/27/19 18:00 03/29/19 17:59 02/28/19 09:16 Heparin Sodium (Porcine) (Heparin 5000 units/ml) 5,000 units EVERY 12 HOURS SUBQ 02/23/19 21:00 03/25/19 20:59 02/28/19 09:17 Insulin Aspart (NovoLOG) BEFORE MEALS AND HS SUBQ 02/23/19 21:00 03/25/19 20:59 02/28/19 11:54 Magnesium Hydroxide (Mom) 30 ml DAILYPRN PRN ORAL Constipation 02/27/19 16:00 03/29/19 15:59 Ondansetron HCl (Zofran) 4 mg Q6H PRN IVP Nausea & Vomiting 02/26/19 11:15 03/28/19 11:14 02/27/19 17:29 Pantoprazole (Protonix) 40 mg DAILY ORAL 02/24/19 09:00 03/26/19 08:59 02/28/19 09:16 Sodium Chloride 1,000 ml @ 100 mls/hr Q10H IV 02/23/19 20:30 03/25/19 20:29 02/28/19 03:44 Dayron Gama MD Feb 28, 2019 13:47
--- NOTE | 2019-02-28 15:28 | NUR ---
NURSE NOTES:WOUND CARE FOLLOW-UP NOTES: Wound plantar L 1st metatarsal noted to have dry crust . No erythema odor or exudate noted. Wound lateral L 5th metatarsal noted to have dry brown cap. No erythema odor or exudate noted. Pt denied pain when minimally palpated. Both wounds swabbed with Betadine,covered wtih Gauze and wrapped with Kerlix.
[2019-02-28 16:00] VITALS: BP 149/98
[2019-02-28] MEDS ORDERED: CEPHALEXIN500 MG ORAL (16:15)
--- NOTE | 2019-02-28 16:47 | Surgery Progress Note ---
Surgery Progress Note Subjective Symptoms: improved, tolerating diet, passing flatus, BM, pain decreased Objective Last 24 Hour Vital Signs Date Time Temp Pulse Resp B/P (MAP) Pulse Ox O2 Delivery O2 Flow Rate FiO2 02/28/19 09:00 Room Air 02/28/19 08:49 98.9 78 16 140/76 (97) 98 02/28/19 04:00 98.6 65 20 156/82 (106) 97 02/28/19 00:00 98.8 77 20 156/89 (111) 98 02/27/19 21:00 Room Air 02/27/19 20:00 99.1 65 20 146/84 (104) 98 I&O Intake and Output 02/27/19 02/28/19 19:00 07:00 Intake Total 2415 ml 1290 ml Output Total 1610 ml Balance 2415 ml -320 ml Intake Oral 1460 ml 480 ml IV Total 955 ml 810 ml Output Urine Total 1610 ml # Voids 8 Dressing: dry Wound: clean Cardiovascular: RSR Respiratory: clear Abdomen: soft, flat, non-tender, present bowel sounds Extremities: edema, no tenderness, no cyanosis Laboratory Tests Test 02/28/19 08:35 White Blood Count 6.0 K/UL (4.8-10.8) Red Blood Count 5.13 M/UL (4.70-6.10) Hemoglobin 12.9 G/DL (14.2-18.0) L Hematocrit 40.0 % (42.0-52.0) L Mean Corpuscular Volume 78 FL (80-99) L Mean Corpuscular Hemoglobin 25.1 PG (27.0-31.0) L Mean Corpuscular Hemoglobin Concent 32.2 G/DL (32.0-36.0) Red Cell Distribution Width 14.1 % (11.6-14.8) Platelet Count 291 K/UL (150-450) Mean Platelet Volume 5.7 FL (6.5-10.1) L Neutrophils (%) (Auto) 63.7 % (45.0-75.0) Lymphocytes (%) (Auto) 29.4 % (20.0-45.0) Monocytes (%) (Auto) 5.6 % (1.0-10.0) Eosinophils (%) (Auto) 0.4 % (0.0-3.0) Basophils (%) (Auto) 0.9 % (0.0-2.0) Sodium Level 141 MMOL/L (136-145) Potassium Level 3.2 MMOL/L (3.5-5.1) L Chloride Level 105 MMOL/L (98-107) Carbon Dioxide Level 30 MMOL/L (21-32) Blood Urea Nitrogen 5 mg/dL (7-18) L Creatinine 0.8 MG/DL (0.55-1.30) Estimat Glomerular Filtration Rate > 60 mL/min (>60) Glucose Level 211 MG/DL (74-106) H Calcium Level 8.2 MG/DL (8.5-10.1) L Lipase 66 U/L (73-393) L Plan Problems: (1) Toe fracture Assessment & Plan: Findings: Plain x-ray clearly shows evidence of an acute comminuted fracture involving the distal phalangeal tuft of the first ray. Soft tissue swelling noted. The MRI examination demonstrates subcutaneous edema and skin thickening. There is ulceration clinically but that this is difficult to appreciate on the MRI examination. There may be a small plantar surface ulcer very distally. Please correlate clinically. There is also motion which limits evaluation. The MRI exam reflects the acute fracture involving the distal phalangeal tuft. There is associated bone marrow edema as expected with T2 hyperintense signal at the endosteal fractured ends of the bone. Superimposed osteomyelitis is not possible to exclude. IMPRESSION: Bone marrow edema in association with a comminuted fracture of the first distal phalangeal tuft. Associated soft tissue swelling. It is not possible to exclude superimposed osteomyelitis, if this is of concern clinically. (2) Edema (3) Cellulitis Assessment & Plan: Pt presented on admission with ulcers Plantar L 1st metatarsal and lateral L 5th metatarsal. Base of wound L st metatarsal noted to have soft necrosis with surrounding erythema. (L)1cm x (W)2.2cm . No odor or exudate noted. Ulcer lateral L 5th metatarsal has 100% fibrinous slough with macerated borders .Wound is malodorous.Small amt purulent exudate noted (L)1.3cm x (W)1cm x (D) 0.5cm . Pt verbalized he has had wounds on feet for 6 weeks and denied seeking medical attention for wounds. Wound plantar L 1st metatarsal noted to have dry crust . No erythema odor or exudate noted. Wound lateral L 5th metatarsal noted to have dry brown cap. No erythema odor or exudate noted. Pt denied pain when minimally palpated. Both wounds swabbed with Betadine,covered wtih Gauze and wrapped with Kerlix. cont current care plan Abx as per ID Podiatry consult given fx will follow with recs thank you Ever Sánchez Feb 28, 2019 16:47
--- NOTE | 2019-02-28 17:20 | NUR ---
NURSE NOTES: Patient discharged. IV removed and site covered. ID band removed and disposed of. Personal belongings inventory signed and patient took belongings. Patient needs met and patient kept comfortable at all times. Patient excirted downstairs and took taxi cab home.
--- NOTE | 2019-02-28 21:43 | Discharge Summary ---
Discharge Summary Discharge Summary _ DATE OF ADMISSION: 02/23/2019 DATE OF DISCHARGE: 02/28/2019 DISCHARGED BY: Dr. Vines REASON FOR ADMISSION: 38 years old male with past medical history of diabetes type 1, noncompliant with insulin, presented to emergency department for evaluation of left leg edema. Leg swelling started several weeks ago. Patient denied any obvious injury or trauma , but patient reported walking a lot. Patient reported prior episode of lower extremity edema, which was worked up prior no diagnosis was made. Patient reported pain in the left foot, ankle and lower calf. No fever , no chills. No vomiting , no diarrhea. He denied chest pain , shortness of breath, cough. Patient reported using crystal meth, alcohol and tobacco. He denied IV rug abuse. No prior history of PE or DVT. No history of coagulopathy. Upon evaluation vital signs were stable. Laboratory work-up revealed no leukocytosis , hemoglobin 11.6, hematocrit 36.1 , platelet count 258. Stable coagulation profile. Sodium 132, potassium 2.9. Stable anion gap . Glucose 515. ABG revealed no significant acidosis. Troponin negative. EKG revealed sinus rhythm, no acute ischemic changes. CRP 6.8. ESR 43. Albumin 2.7. Stable LFT. Venous duplex left lower extremity revealed no evidence of left lower extremity DVT. X-ray of the left foot was positive for first distal phalanx terminal tuft fracture. Patient started on IV fluids , received dose of IV insulin. Potassium was repleted orally. Patient started on empiric antibiotic for cellulitis and subsequently admitted for further management. CONSULTANTS: ID specialist Dr. Pisano surgery Dr. Sánchez HOSPITAL COURSE: Patient admitted to medical surgical floor. Patient started on IV antibiotic as per ID specialist recommendation. Blood sugar was managed with sliding scale of insulin. Wound culture from the left foot ulcer revealed Streptococci pyogenes group A and Staphylococci coagulase negative. Patient initially was on IV Ancef, which changed to oral Keflex . Patient will need to complete course of antibiotic at home. Patient remains afebrile, no leukocytosis MRI of the left control revealed Arterial duplex bilateral lower extremity revealed no evidence of hemodynamically significant arterial occlusive disease bilaterally. Surgeon closely followed . Wound care provided as per surgeon recommendation. Surgeon recommended follow-up with frame feeder as outpatient . DVT prophylaxis provided. Pain management was addressed as needed. Supportive care provided. Renal parameters and electrolytes were closely monitored. Electrolytes corrected as needed. Nephrotoxics were avoided. Diabetic teaching provided. Patient was encouraged compliance with anti-glycemic regimen. Patient clinically stabilized and was ready for discharge. FINAL DIAGNOSES: Left big toe ulcer infection with group A Strep Cellulitis Diabetes mellitus out of control with hyperglycemia Left big toe fracture Cellulitis Noncompliance DISCHARGE MEDICATIONS: See Medication Reconciliation list. DISCHARGE INSTRUCTIONS: Patient was discharged home. Follow up with primary care provider in one week. I have been assigned to dictate discharge summary for this account. I was not involved in the patient's management. Ciara Craven NP Feb 28, 2019 21:43
== END 2019-02-28 17:22 | disposition home or self-care (01) | DRG 380 ==
LOC: EMR 15:04 → 4E 15:51 → EDBEDREQ 17:14 → 4E 21:33
DX: E10.621 Type 1 diabetes mellitus with foot ulcer (principal); L97.529 Non-pressure chronic ulcer of other part of left foot with unspecified severity; Z79.4 Long term (current) use of insulin; L03.116 Cellulitis of left lower limb; B95.0 Streptococcus, group A, as the cause of diseases classified elsewhere; S92.422A Displaced fracture of distal phalanx of left great toe, initial encounter for closed fracture; Z91.14 Patient's other noncompliance with medication regimen; E10.65 Type 1 diabetes mellitus with hyperglycemia; X58.XXXA Exposure to other specified factors, initial encounter; F15.11 Other stimulant abuse, in remission; F17.200 Nicotine dependence, unspecified, uncomplicated; E87.6 Hypokalemia
CPT/HCPCS: 36415; 36600; 80048; 80053; 80202; 82009; 82803; 82962; 83690; 83880; 84484; 85025; 85610; 85651; 85730; 86140; 87070; 87205; 93005; 93925; 93971; 96365; 96375; 99291; J1815; J2405; J8499; S0077